=== PATIENT | female | born 1955 | race Caucasian/White ===

== ENCOUNTER → 2017-06-22 | Day surgery (SDC) | payer OTHER ==
[2017-06-12 09:52] VITALS: Ht 165.1 cm; Wt 86.4 kg
[~2017-06-22] VITALS: Ht 165.1 cm; Wt 86.4 kg
[~2017-06-22] MED LIST: LIDOCAINE HCL 2% 2 ML VIAL (20MG/ML) ONE; LISI-789 PO; LNX125 PO; METO1TAB69 PO; OXYB5TAB74 PO; PROPOFOL IV EMULSION 10 MG/ML 20 ML VIAL IV ONE; SIMV20TA2 PO; SPIR25TA PO; WARF5TAB90 PO
--- NOTE | 2017-06-22 11:10 | Endo History and Physical ---
History & Physical Date of Service: Jun 22, 2017. Chief Complaint: screening Referring Physician: Dr. Chan Asher Jr. History of Present Illness screening colonoscopy Past Surgical History Hx Cardiac Surgery: Yes (HEART CATH-NO STENTS) Hx Internal Defibrillator: No Hx Pacemaker: Yes (MEDTRONIC) Hx of Implantable Prosthesis: No Hx Post-Op Nausea and Vomiting: No Hx Cancer Surgery: No Hx Thoracic Surgery: No Hx Orthopedic: No Hx Urinary Tract Surgery: No Family History IBD Social History Smoking Status: Never Smoker Hx Substance Use: No Hx Alcohol Use: No Allergies Coded Allergies: No Known Allergies (Verified , 06/22/17) Current Medications Reported Home Medications Medications Dose Route/Sig Max Daily Dose Days Date Category Ditropan (Oxybutynin Chloride) 5 Mg Tab 5 Mg PO QPM 06/12/17 Reported Zocor (Simvastatin) 20 Mg Tab 20 Mg PO QPM 06/12/17 Reported Zestril (Lisinopril) 2.5 Mg Tab 1 Tab PO HS 06/12/17 Reported Coumadin (Warfarin Sodium) 5 Mg Tab 5 Mg PO 5XWK 06/12/17 Reported Coumadin (Warfarin Sodium) 5 Mg Tab 1.5 Tab PO 2XWK 90 06/12/17 Reported Digoxin 0.125 Mg Tab 1 Tab PO QAM 06/12/17 Reported Aldactone (Spironolactone) 25 Mg Tab 25 Mg PO QAM 06/12/17 Reported Toprol-Xl (Metoprolol Succinate) 100 Mg Tabcr 150 Mg PO QAM 06/12/17 Reported Vital Signs Weight (Kilograms): 86.36 Height (Feet): 5 Height (Inches): 5 Date Time Temp Pulse Resp B/P (MAP) Pulse Ox O2 Delivery O2 Flow Rate FiO2 06/22/17 09:35 36.6 74 20 149/98 (115) 97 Room Air Physical Exam General Appearance: no apparent distress Respiratory/Chest: Auscultation: breath sounds normal Cardiovascular: Heart Auscultation: RRR Abdomen: Inspection & Palpation: soft Liver: non-tender Assessment and Plan stable for colonoscopy
--- NOTE | 2017-06-22 11:46 | Discharge Instructions ---
Endoscopy Patient Instructions Date / Procedure(s) Performed Jun 22, 2017. Colonoscopy Allergy Information Coded Allergies: No Known Allergies (Verified , 06/22/17) Discharge Date / Findings Jun 22, 2017. colon polyp removed Medication Instructions Stopped Medication(s): last dose Warfarin 06/16 at 2359 Provider Instructions Activity Restrictions - No exercising or heavy lifting for 24 hours. - Do not drink alcohol the day of the procedure. - Do not drive a car or operate machinery until the day after the procedure. - Do not make any important decisions or sign important papers in 24 hours after the procedure. Following Day: - Return to full activity which may include returning to work/school. Diet Start your diet with liquids and light foods (jello, soup, juice, toast). Then eat your usual diet if not nauseated. Treatment For Common After Affects For mild abdominal pain, bloating, or excessive gas: - Rest - Eat lightly - Lie on right side Follow-Up Information Follow-up with Dr. Chan Asher Jr. as scheduled Anesthesia Information What You Should Know You have had a procedure that required some medicine to reduce anxiety and discomfort. This treatment is called moderate sedation. After receiving the treatment, you may be sleepy, but you will be able to breathe on your own. The effects of the treatment may last for several hours. Follow these instructions along with Activity/Diet recommendations noted above: * Do NOT do anything where dizziness or clumsiness would be dangerous. * Rest quietly at home today, then you can be up and about tomorrow. * Have a responsible person stay with you the rest of today. * You may have had an I.V. today. If so, you may take the dressing off later today. Recommendations Call your doctor if: * Trouble breathing * Continuous vomiting for more than 24 hours * Temperature above 101 degrees * Severe abdominal pain or bloating * Pain not relieved by pain medicine ordered * There is increased drainage or redness from any incision * A large amount of rectal bleeding greater than 2-3 tablespoons. (If you had a polyp/s removed or have hemorrhoids, a small amount of blood - from the rectum is to be expected.) * You have any unanswered questions or concerns. IN THE EVENT OF A SERIOUS EMERGENCY, GO TO THE NEAREST EMERGENCY ROOM Your discharge instructions were prepared by provider Tommy Sylvester. Patient Instructions Signature Page Brianne Childs Patient (or Guardian) Signature/Date: I have read and understand the instructions given to me by my caregivers. Caregiver/RN/Doctor Signature/Date: The above-named patient and/or guardian has received patient instructions on this date. + Original Patient Signature Page (only) stays with chart. Please make copy for patient.
--- NOTE | 2017-06-22 11:50 | GI REPORT ---
Procedure Date: 06/22/2017 11:11 AM Procedure: Colonoscopy Indications: Screening for colorectal malignant neoplasm Medicines: See the Anesthesia note for documentation of the administered medications Complications: No immediate complications. Estimated Blood Loss: Estimated blood loss was minimal. Procedure: Pre-Anesthesia Assessment: - Prior to the procedure, a History and Physical was performed, and patient medications, allergies and sensitivities were reviewed. The patient's tolerance of previous anesthesia was reviewed. - The risks and benefits of the procedure and the sedation options and risks were discussed with the patient. All questions were answered and informed consent was obtained. - Patient identification and proposed procedure were verified prior to the procedure by the physician and the nurse. The procedure was verified in the pre-procedure area. - Pre-procedure physical examination revealed no contraindications to sedation. - After reviewing the risks and benefits, the patient was deemed in satisfactory condition to undergo the procedure. After I obtained informed consent, the scope was passed under direct vision. Throughout the procedure, the patient's blood pressure, pulse, and oxygen saturations were monitored continuously. The scope was introduced through the anus and advanced to the terminal ileum, with identification of the appendiceal orifice and IC valve. The colonoscopy was performed without difficulty. The patient tolerated the procedure well. The quality of the bowel preparation was good. Findings: The perianal and digital rectal examinations were normal. The terminal ileum appeared normal. A 5 mm polyp was found in the cecum. The polyp was semi-sessile. The polyp was removed with a cold snare. Resection and retrieval were complete. Verification of patient identification for the specimen was done by the physician and nurse using the patient's name and medical record number. Estimated blood loss was minimal. The exam was otherwise without abnormality on direct and retroflexion views. Impression: - The examined portion of the ileum was normal. - One 5 mm polyp in the cecum, removed with a cold snare. Resected and retrieved. - The examination was otherwise normal on direct and retroflexion views. Recommendation: - Await pathology results. - Discharge patient to home. Tommy Sylvester M.D. Tommy Sylvester MD 06/22/2017 11:50:17 AM This report has been signed electronically. Note Initiated On: 06/22/2017 11:11 AM I attest to the content of the Intraoperative Record and orders documented therein, exceptions below
--- NOTE | 2017-06-22 12:03 | Anesthesiology Progress Note ---
Anesthesia Post Op Note Date & Time Jun 22, 2017 at 12:03 Vital Signs Pain Intensity: 0 Vital Signs Past 12 Hours Date Time Temp Pulse Resp B/P (MAP) Pulse Ox O2 Delivery O2 Flow Rate FiO2 06/22/17 11:48 75 16 111/71 (84) 98 Room Air 06/22/17 09:35 36.6 74 20 149/98 (115) 97 Room Air Notes Mental Status: alert / awake / arousable, participated in evaluation Pt Amnestic to Procedure: Yes Nausea / Vomiting: adequately controlled Pain: adequately controlled Airway Patency, RR, SpO2: stable & adequate BP & HR: stable & adequate Hydration State: stable & adequate Anesthetic Complications: no major complications apparent
[2017-06-22 12:18] VITALS: BP 127/78; PULSE 68; O2SAT 98
== END | disposition home or self-care (01) ==
LOC: C.GI 09:05
PROVIDERS: ATTEND Internal Medicine Gastroenterology
DX: Z12.11 Encounter for screening for malignant neoplasm of colon (principal); D12.0 Benign neoplasm of cecum; Z79.01 Long term (current) use of anticoagulants; I10 Essential (primary) hypertension; E78.5 Hyperlipidemia, unspecified; Z95.0 Presence of cardiac pacemaker; K21.9 Gastro-esophageal reflux disease without esophagitis; I25.10 Atherosclerotic heart disease of native coronary artery without angina pectoris

== ENCOUNTER 2021-05-11 01:58 | Inpatient (IN) ==
[2021-05-11] MEDS ORDERED: PANTOPRAZOLE BOLUS/DRIP 1 EA IV STA (02:28)
[2021-05-11] MEDS ORDERED: PANTOprazole 80 MG in DEXTROSE 5% 100 ML IV ONE (02:28)
[2021-05-11] MEDS ORDERED: SODIUM CHLORIDE 0.9% 1000ML 1,000 ML IV ONE ×2 (02:28→03:40)
[2021-05-11 02:38] LABS: Basophils # (auto) 0.03 K/uL (0-0.2); Basophils % (auto) 0.2 %; Eosinophils # (auto) 0.03 K/uL (0-0.5); Eosinophils % (auto) 0.2 %; Hematocrit (blood only) 29.9 % (37-47); Hemoglobin 9.8 g/dL (12.0-16.0); Immature Granulocytes % (auto) 0.7 %; Lymphocytes # (auto) 2.43 K/uL (1.2-3.4); Lymphocytes % (auto) 16.7 %; Mean Corpuscular Hemoglobin 26.3 pg (25-34); Mean Corpuscular Hgb Conc 32.8 g/dL (32-36); Mean Corpuscular Volume 80.4 fL (80-100); Mean Platelet Volume 10.2 fL (7.4-10.4); Monocytes # (auto) 0.58 K/uL (0.11-0.59); Neutrophils # (auto) 11.39 K/uL (1.4-6.5); Neutrophils % (auto) 78.2 %; Platelet Count 303 K/uL (130-400); RDW Coefficient of Variation 13.6 % (11.5-14.5); RDW Standard Deviation 39.5 fL (36.4-46.3); Red Blood Count 3.72 M/uL (4.2-5.4); White Blood Count 14.56 K/uL (4.8-10.8)
[2021-05-11] MEDS: PANTOprazole 40 MG in DEXTROSE 5% 100 ML IV SCH ×5 (02:47→23:39)
[2021-05-11 02:48] LABS: Alanine Aminotransferase 34 U/L (12-78); Albumin Level 3.2 gm/dl (3.4-5.0); Aspartate Aminotransferase 15 U/L (15-37); Blood Urea Nitrogen 53 mg/dl (7-18); Calcium 9.1 mg/dl (8.5-10.1); Carbon Dioxide 21 mmol/L (21-32); Chloride 109 mmol/L (98-107); Creatinine Clr Calc Pharmacy 73.9 ml/min; Est GFR (African American) 81.6 ml/min; Est GFR (Non-African American) 70.4 ml/min; Glucose 285 mg/dl (70-99); Lipase 86 U/L (73-393); Magnesium 1.8 mg/dl (1.8-2.4); Potassium 4.4 mmol/L (3.5-5.1); Sodium 137 mmol/L (136-145)
[2021-05-11 02:53] LABS: Albumin Globulin Ratio 0.9 (0.9-2); Alkaline Phosphatase 74 U/L (45-117); Bilirubin,Total 0.3 mg/dl (0.2-1); Globulin 3.4 gm/dl (2.5-4.0); NT Pro B Type Natriuretic Pept 59 pg/ml (0-900); Total Protein 6.6 gm/dl (6.4-8.2); Troponin I < 0.015 ng/ml (0-0.045)
--- NOTE | 2021-05-11 02:57 | Emergency Department Note ---
History of Present Illness General Chief complaint: GI Assessment Stated complaint: UPPER GI BLEED/DARK EMISIS Time Seen by Provider: 05/11/21 02:10 Source: patient Mode of arrival: EMS Limitations: no limitations History of Present Illness Provider complaint: vomiting Onset (ago): hour(s) Associated symptoms: + loss of appetite, + malaise and + nausea/vomiting; no chest pain, no shortness of breath or no syncope Treatments prior to arrival: none This is a 65-year-old who presents emergency department via EMS due to concern for vomiting. Patient states earlier today after lunch she began feeling unwell. She states this slowly progressed into worsening nausea and eventual dizziness this evening. She states tonight she began having vomiting and her called 911. at bedside states that the emesis looked grossly bloody with clots. Patient states it was dark. EMS reports patient had coffee- ground emesis with apparent clots in the toilet bowl. Patient states any attempt to stand up or walk made her feel significantly dizzy and weaker although she denies syncopal event or loss of consciousness. Patient denies any recent black or bloody stools, no recent diarrhea. Patient denies any company abdominal pain or cramping. No prior history of PUD or GERD. No prior history of GI bleed. No prior EGD. Patient denies any history of liver dysfunction or cirrhosis. Patient is anticoagulated due to history of cardiomyopathy. She states her last INR was 2.6. Pt seen during a time of high acuity and national emergency pandemic while wearing PPE. Home Medications Medication Instructions Recorded Confirmed Type furosemide 20 mg tablet 20 mg PO DAILY 07/30/19 05/11/21 History anastrozole 1 mg tablet 1 mg PO DAILY 05/11/21 05/11/21 History digoxin 125 mcg (0.125 mg) tablet 0.125 mcg PO DAILY 05/11/21 05/11/21 History lisinopril 2.5 mg tablet 2.5 mg PO DAILY 05/11/21 05/11/21 History metoprolol succinate 100 mg 100 mg PO DAILY 05/11/21 05/11/21 History tablet,extended release 24 hr metoprolol succinate 25 mg 25 mg PO DAILY 05/11/21 05/11/21 History tablet,extended release 24 hr simvastatin 20 mg tablet 20 mg PO HS 05/11/21 05/11/21 History solifenacin 5 mg tablet 5 mg PO DAILY 05/11/21 05/11/21 History spironolactone 25 mg tablet 25 mg PO DAILY 05/11/21 05/11/21 History warfarin 5 mg tablet See Rx Instructions .ROUTE .COMPLEX 05/11/21 05/11/21 History Allergies Allergy/AdvReac Type Severity Reaction Status Date / Time No Known Allergies Allergy Verified 05/11/21 02:27 Past Med/Surg History Social History Smoking Status: Never smoker Hx Alcohol Use: No Hx Substance Use: No Preferred Language: Occitan Communication Ability: Effective [employer]ver [employer]ware Required: No Beliefs That Will Affect Care: None Current Living Situation: Spouse Feels Safe at Home: Yes Safety Concerns: Feels Safe At This Time Review of Systems A total of 10 systems reviewed and were otherwise negative All systems reviewed & are unremarkable except as noted in HPI & below Physical Exam Vital Signs Vital Signs - 24 hr 05/11/21 02:00 05/11/21 02:04 05/11/21 02:12 Temperature 37.5 C Temperature Source Oral Pulse Rate 122 H 114 H Pulse Rate [Radial] 122 H Pulse Rate from SpO2 Sensor 113 H Respiratory Rate 16 24 20 Respiratory Depth Normal Blood Pressure 124/70 124/70 Blood Pressure [Left Arm] 124/70 Blood Pressure Mean 88 88 Blood Pressure Mean [Left Arm] 88 Pulse Oximetry 99 97 97 Oxygen Delivery Method Room Air Room Air Sepsis Recent Fever Within 48 Hours No Sepsis New/Unexplained Change in Mental Status N/A Sepsis Action Taken by Nursing No Action Required 05/11/21 03:02 Temperature Temperature Source Pulse Rate 100 H Pulse Rate [Radial] Pulse Rate from SpO2 Sensor Respiratory Rate 18 Respiratory Depth Blood Pressure 124/70 Blood Pressure [Left Arm] Blood Pressure Mean 88 Blood Pressure Mean [Left Arm] Pulse Oximetry 99 Oxygen Delivery Method Room Air Sepsis Recent Fever Within 48 Hours Sepsis New/Unexplained Change in Mental Status Sepsis Action Taken by Nursing GENERAL: alert, ill appearing, well nourished, no distress, non-toxic EYE EXAM: normal conjunctiva, PERRL and EOM's grossly intact OROPHARYNX: no exudate, no erythema, lips, buccal mucosa, and tongue normal and mucous membranes are moist, dried black residue to lips NECK: supple, no nuchal rigidity, no adenopathy, non-tender LUNGS: Clear to auscultation. Normal chest wall mechanics, no w/r/r HEART: no murmurs, S1 normal and S2 normal ABDOMEN: abdomen soft, non-tender, normo-active bowel sounds, no masses, no rebound or guarding. BACK: Back is symmetrical on inspection and there is no deformity, no midline tenderness, no CVA tenderness. SKIN: no rashes and no bruising, petechaie, pallor UPPER EXTREMITIES: upper extremities are grossly normal. FROM, nml pulses b/l. LOWER EXTREMITIES: No pitting edema. FROM, nml pulses b/l. NEURO EXAM: Normal sensorium, cranial nerves II-XII grossly intact, normal speech, no gross weakness of arms, no gross weakness of legs. Gross sensation intact. Course Course 0335: Patient had requested to go to the restroom. She said at bedside for time and had no orthostatic symptoms. Upon standing to walk to bathroom, pt felt lightheaded. She sat down before passing out but then began to vomit blood again. 0345: Discussed with Dr. Hernandez. 0352: Discussed with Dr. Sylvester. Administered Medications Anastrozole (Anastrozole 1 Mg Tab) 1 mg PO DAILY [facility] Stop: 06/10/21 08:59 Last Admin: 05/11/21 10:02 Dose: 1 mg Documented by: [id number] Cosigned by: [id number] Digoxin (Digoxin 0.125 Mg Tab) 0.125 mg PO DAILY@1600 [facility] Stop: 06/10/21 15:59 Last Admin: 05/11/21 16:49 Dose: 0.125 mg Documented by: [id number] Pantoprazole Sodium 40 mg/ (Dextrose) 100 mls @ 20 mls/hr IV Q5H [facility] Stop: 06/10/21 02:44 Last Admin: 05/12/21 04:52 Dose: 8 mg/hr, 20 mls/hr Documented by: [id number] Infusion: 05/12/21 04:39 Dose: 8 mg/hr, 20 mls/hr Documented by: [id number] Admin: 05/11/21 23:39 Dose: 8 mg/hr, 20 mls/hr Documented by: [id number] Infusion: 05/11/21 23:39 Dose: 8 mg/hr, 20 mls/hr Documented by: [id number] Admin: 05/11/21 18:48 Dose: 8 mg/hr, 20 mls/hr Documented by: [id number] Infusion: 05/11/21 18:48 Dose: 8 mg/hr, 20 mls/hr Documented by: [id number] Admin: 05/11/21 14:12 Dose: 8 mg/hr, 20 mls/hr Documented by: [id number] Infusion: 05/11/21 14:12 Dose: 8 mg/hr, 20 mls/hr Documented by: [id number] Admin: 05/11/21 10:04 Dose: 8 mg/hr, 20 mls/hr Documented by: [id number] Infusion: 05/11/21 07:44 Dose: 0 mg/hr, 0 mls/hr Documented by: [id number] Admin: 05/11/21 02:47 Dose: 8 mg/hr, 20 mls/hr Documented by: [id number] Lactated Ringer's (Lr) 1,000 mls @ 100 mls/hr IV .Q10H [facility] Stop: 06/10/21 10:29 Last Admin: 05/12/21 06:00 Dose: 100 mls/hr Documented by: [id number] Infusion: 05/12/21 06:00 Dose: 100 mls/hr Documented by: [id number] Admin: 05/12/21 00:27 Dose: 100 mls/hr Documented by: [id number] Infusion: 05/12/21 00:07 Dose: 0 mls/hr Documented by: [id number] Infusion: 05/11/21 18:42 Dose: 0 mls/hr Documented by: [id number] Admin: 05/11/21 11:21 Dose: 100 mls/hr Documented by: [id number] Insulin Aspart (Insulin Aspart 100 Units/Ml 3 Ml Pen) 0 units SC ACHS [facility] Stop: 06/10/21 08:17 Last Admin: 05/11/21 20:26 Dose: Not Given Documented by: [id number] Cosigned by: [id number] Admin: 05/11/21 17:19 Dose: Not Given Documented by: [id number] Admin: 05/11/21 12:16 Dose: 2 units Documented by: [id number] Cosigned by: [id number] Admin: 05/11/21 09:47 Dose: 2 units Documented by: [id number] Cosigned by: [id number] Miscellaneous (Solifenacin - Order Awaiting Action) 1 ea N/A QS [facility] Stop: 06/10/21 15:59 Last Admin: 05/12/21 00:07 Dose: Not Given Documented by: [id number] Admin: 05/11/21 16:49 Dose: Not Given Documented by: [id number] Simvastatin (Simvastatin 20 Mg Tab) 20 mg PO [facility] Stop: 06/10/21 20:59 Last Admin: 05/11/21 20:31 Dose: 20 mg Documented by: [id number] Discontinued Medications Digoxin (Digoxin 0.125 Mg Tab) 0.125 mg PO NOW STA Stop: 05/11/21 06:08 Last Admin: 05/11/21 06:32 Dose: 0.125 mg Documented by: [id number] Sodium Chloride (Nss 1000ml) 1,000 mls @ 999 mls/hr IV .Q1H1M ONE Stop: 05/11/21 03:28 Last Infusion: 05/11/21 03:37 Dose: 0 mls/hr Documented by: [id number] Admin: 05/11/21 02:36 Dose: 999 mls/hr Documented by: [id number] Pantoprazole Sodium (Protonix Bolus/Drip) 0 mls @ 1 mls/hr IV ONE STA Stop: 05/11/21 02:29 Last Admin: 05/11/21 03:14 Dose: Not Given Documented by: [id number] Pantoprazole Sodium 80 mg/ (Dextrose) 120 mls @ 400 mls/hr IV NOW ONE Stop: 05/11/21 02:45 Last Infusion: 05/11/21 03:07 Dose: 0 mls/hr Documented by: [id number] Admin: 05/11/21 02:46 Dose: 400 mls/hr Documented by: [id number] Phytonadione 2.5 mg/ Sodium (Chloride) 50.25 mls @ 100.5 mls/hr IV ONE ONE Stop: 05/11/21 04:09 Last Infusion: 05/11/21 04:21 Dose: 0 mls/hr Documented by: [id number] Admin: 05/11/21 03:51 Dose: 100.5 mls/hr Documented by: [id number] Sodium Chloride (Nss 1000ml) 1,000 mls @ 999 mls/hr IV .Q1H1M ONE Stop: 05/11/21 04:40 Last Infusion: 05/11/21 05:03 Dose: 0 mls/hr Documented by: [id number] Admin: 05/11/21 03:52 Dose: 999 mls/hr Documented by: [id number] Phytonadione 10 mg/ Sodium (Chloride) 51 mls @ 102 mls/hr IV ONE ONE Stop: 05/11/21 04:24 Last Admin: 05/11/21 04:33 Dose: Not Given Documented by: [id number] Phytonadione 7.5 mg/ Sodium (Chloride) 50.75 mls @ 102 mls/hr IV ONE ONE Stop: 05/11/21 04:59 Last Infusion: 05/11/21 05:05 Dose: 0 mls/hr Documented by: [id number] Admin: 05/11/21 04:34 Dose: 102 mls/hr Documented by: [id number] Lactated Ringer's (Lr) 1,000 mls @ 200 mls/hr IV .Q5H ONE Stop: 05/11/21 10:03 Last Infusion: 05/11/21 11:32 Dose: 0 mls/hr Documented by: [id number] Admin: 05/11/21 05:16 Dose: 200 mls/hr Documented by: [id number] Magnesium Sulfate/Dextrose (Magnesium Sulfate / D5w) 1 gm in 100 mls @ 50 mls/hr IV ONE ONE Stop: 05/11/21 09:34 Last Infusion: 05/11/21 15:04 Dose: 0 mls/hr Documented by: [id number] Admin: 05/11/21 12:10 Dose: 50 mls/hr Documented by: [id number] Sodium Phosphate 9 mmol/ (Sodium Chloride) 253 mls @ 88 mls/hr IV ONE ONE Stop: 05/11/21 20:52 Last Infusion: 05/12/21 00:08 Dose: 0 mls/hr Documented by: [id number] Admin: 05/11/21 18:48 Dose: 88 mls/hr Documented by: [id number] Insulin Glargine (Insulin Glargine Solostar 100 Units/Ml 3 Ml Pen) 5 units SC NOW STA Stop: 05/11/21 05:10 Last Admin: 05/11/21 06:32 Dose: 5 units Documented by: [id number] Cosigned by: [id number] Critical Care Time Critical Care Time: Yes Total Critical Care Time: 47 Critical care of 47 min performed to assess and manage high likelihood of life- threatening GI bleed, involving labs and imaging performed with assessment to evaluate Gi bleed diagnosis with frequent reassessment. This time includes bedside time, treatment discussions with patient/family/consultants, documentation time and excludes procedure time. Medical Decision Making Differential Diagnosis Differential diagnosis includes etiologies such as diverticulosis, AVM, coagulopathy, colitis, inflammatory bowel disease, malignancy, Meghna-Sharp tear, esophagitis, peptic ulcer disease, variceal bleed, gastritis, epistaxis, fissure, hemorrhoids, as well as others were entertained. Medical Records Attestation: I reviewed the patient's medical records. Home Medications Current Medication List: was personally reviewed by me Laboratory Data Attestation: I reviewed the patient's lab results. Result diagrams: 05/12/21 06:01 05/11/21 14:46 Lab Results 05/11/21 05/11/21 05/11/21 Range/Units 02:15 02:15 02:15 WBC 14.56 H (4.8-10.8) K/uL RBC 3.72 L (4.2-5.4) M/uL Hgb 9.8 L (12.0-16.0) g/dL Hct 29.9 L (37-47) % MCV 80.4 (80-100) fL MCH 26.3 (25-34) pg MCHC 32.8 (32-36) g/dL RDW Std Deviation 39.5 (36.4-46.3) fL RDW Coeff of Malka 13.6 (11.5-14.5) % Plt Count 303 (130-400) K/uL MPV 10.2 (7.4-10.4) fL Immature Gran % (Auto) 0.7 % Neut % (Auto) 78.2 % Lymph % (Auto) 16.7 % Hamlin % (Auto) 4.0 % Eos % (Auto) 0.2 % Baso % (Auto) 0.2 % Neut # (Auto) 11.39 H (1.4-6.5) K/uL Lymph # (Auto) 2.43 (1.2-3.4) K/uL [place]lin # (Auto) 0.58 (0.11-0.59) K/uL Eos # (Auto) 0.03 (0-0.5) K/uL Baso # (Auto) 0.03 (0-0.2) K/uL Immature Gran # (Auto) 0.10 H (0.00-0.02) K/uL PT 43.5 H (9.0-12.0) Seconds INR 4.9 H (0.9-1.1) Sodium 137 (136-145) mmol/L Potassium 4.4 (3.5-5.1) mmol/L Chloride 109 H (98-107) mmol/L Carbon Dioxide 21 (21-32) mmol/L Anion Gap 7.0 (3-11) BUN 53 H (7-18) mg/dl Creatinine 0.87 (0.6-1.2) mg/dl Est Cr Clr Drug Dosing 73.9 ml/min Est GFR ( Amer) 81.6 ml/min Est GFR (Non-Af Amer) 70.4 ml/min BUN/Creatinine Ratio 61.0 H (10-20) Glucose 285 H (70-99) mg/dl Estimat Average Glucose mg/dl Hemoglobin A1c (4.5-5.6) % Lactate (0.4-2.0) mmol/L Calcium 9.1 (8.5-10.1) mg/dl Magnesium 1.8 (1.8-2.4) mg/dl Total Bilirubin 0.3 (0.2-1) mg/dl AST 15 (15-37) U/L ALT 34 (12-78) U/L Alkaline Phosphatase 74 (45-117) U/L Troponin I < 0.015 (0-0.045) ng/ml NT-Pro-B Natriuret Pep 59 (0-900) pg/ml Total Protein 6.6 (6.4-8.2) gm/dl Albumin 3.2 L (3.4-5.0) gm/dl Globulin 3.4 (2.5-4.0) gm/dl Albumin/Globulin Ratio 0.9 (0.9-2) Lipase 86 (73-393) U/L Procalcitonin (0-0.5) ng/ml TSH 0.895 (0.300-4.500) uIu/ml Digoxin (0.8-2.0) ng/ml COVID-19 Eval Order SARS-CoV-2 (PCR) (Negative) Blood Type Antibody Screen Crossmatch 05/11/21 05/11/21 05/11/21 Range/Units 02:15 02:15 02:15 WBC (4.8-10.8) K/uL RBC (4.2-5.4) M/uL Hgb (12.0-16.0) g/dL Hct (37-47) % MCV (80-100) fL MCH (25-34) pg MCHC (32-36) g/dL RDW Std Deviation (36.4-46.3) fL RDW Coeff of Malka (11.5-14.5) % Plt Count (130-400) K/uL MPV (7.4-10.4) fL Immature Gran % (Auto) % Neut % (Auto) % Lymph % (Auto) % Hamlin % (Auto) % Eos % (Auto) % Baso % (Auto) % Neut # (Auto) (1.4-6.5) K/uL Lymph # (Auto) (1.2-3.4) K/uL [place]lin # (Auto) (0.11-0.59) K/uL Eos # (Auto) (0-0.5) K/uL Baso # (Auto) (0-0.2) K/uL Immature Gran # (Auto) (0.00-0.02) K/uL PT (9.0-12.0) Seconds INR (0.9-1.1) Sodium (136-145) mmol/L Potassium (3.5-5.1) mmol/L Chloride (98-107) mmol/L Carbon Dioxide (21-32) mmol/L Anion Gap (3-11) BUN (7-18) mg/dl Creatinine (0.6-1.2) mg/dl Est Cr Clr Drug Dosing ml/min Est GFR ( Amer) ml/min Est GFR (Non-Af Amer) ml/min BUN/Creatinine Ratio (10-20) Glucose (70-99) mg/dl Estimat Average Glucose 157 mg/dl Hemoglobin A1c 7.1 H (4.5-5.6) % Lactate (0.4-2.0) mmol/L Calcium (8.5-10.1) mg/dl Magnesium (1.8-2.4) mg/dl Total Bilirubin (0.2-1) mg/dl AST (15-37) U/L ALT (12-78) U/L Alkaline Phosphatase (45-117) U/L Troponin I (0-0.045) ng/ml NT-Pro-B Natriuret Pep (0-900) pg/ml Total Protein (6.4-8.2) gm/dl Albumin (3.4-5.0) gm/dl Globulin (2.5-4.0) gm/dl Albumin/Globulin Ratio (0.9-2) Lipase (73-393) U/L Procalcitonin 0.07 (0-0.5) ng/ml TSH (0.300-4.500) uIu/ml Digoxin 0.4 L (0.8-2.0) ng/ml COVID-19 Eval Order SARS-CoV-2 (PCR) (Negative) Blood Type Antibody Screen Crossmatch 05/11/21 05/11/21 05/11/21 Range/Units 02:24 03:54 03:54 WBC (4.8-10.8) K/uL RBC (4.2-5.4) M/uL Hgb 7.8 L (12.0-16.0) g/dL Hct 23.7 L (37-47) % MCV (80-100) fL MCH (25-34) pg MCHC (32-36) g/dL RDW Std Deviation (36.4-46.3) fL RDW Coeff of Malka (11.5-14.5) % Plt Count (130-400) K/uL MPV (7.4-10.4) fL Immature Gran % (Auto) % Neut % (Auto) % Lymph % (Auto) % Hamlin % (Auto) % Eos % (Auto) % Baso % (Auto) % Neut # (Auto) (1.4-6.5) K/uL Lymph # (Auto) (1.2-3.4) K/uL Hamlin # (Auto) (0.11-0.59) K/uL Eos # (Auto) (0-0.5) K/uL Baso # (Auto) (0-0.2) K/uL Immature Gran # (Auto) (0.00-0.02) K/uL PT (9.0-12.0) Seconds INR (0.9-1.1) Sodium (136-145) mmol/L Potassium (3.5-5.1) mmol/L Chloride (98-107) mmol/L Carbon Dioxide (21-32) mmol/L Anion Gap (3-11) BUN (7-18) mg/dl Creatinine (0.6-1.2) mg/dl Est Cr Clr Drug Dosing ml/min Est GFR ( Amer) ml/min Est GFR (Non-Af Amer) ml/min BUN/Creatinine Ratio (10-20) Glucose (70-99) mg/dl Estimat Average Glucose mg/dl Hemoglobin A1c (4.5-5.6) % Lactate 4.2 H* (0.4-2.0) mmol/L Calcium (8.5-10.1) mg/dl Magnesium (1.8-2.4) mg/dl Total Bilirubin (0.2-1) mg/dl AST (15-37) U/L ALT (12-78) U/L Alkaline Phosphatase (45-117) U/L Troponin I (0-0.045) ng/ml NT-Pro-B Natriuret Pep (0-900) pg/ml Total Protein (6.4-8.2) gm/dl Albumin (3.4-5.0) gm/dl Globulin (2.5-4.0) gm/dl Albumin/Globulin Ratio (0.9-2) Lipase (73-393) U/L Procalcitonin (0-0.5) ng/ml TSH (0.300-4.500) uIu/ml Digoxin (0.8-2.0) ng/ml COVID-19 Eval Order SARS-CoV-2 (PCR) (Negative) Blood Type B Positive Antibody Screen NEGATIVE Crossmatch See Detail 05/11/21 05/11/21 Range/Units 03:54 03:54 WBC (4.8-10.8) K/uL RBC (4.2-5.4) M/uL Hgb (12.0-16.0) g/dL Hct (37-47) % MCV (80-100) fL MCH (25-34) pg MCHC (32-36) g/dL RDW Std Deviation (36.4-46.3) fL RDW Coeff of Malka (11.5-14.5) % Plt Count (130-400) K/uL MPV (7.4-10.4) fL Immature Gran % (Auto) % Neut % (Auto) % Lymph % (Auto) % Hamlin % (Auto) % Eos % (Auto) % Baso % (Auto) % Neut # (Auto) (1.4-6.5) K/uL Lymph # (Auto) (1.2-3.4) K/uL Hamlin # (Auto) (0.11-0.59) K/uL Eos # (Auto) (0-0.5) K/uL Baso # (Auto) (0-0.2) K/uL Immature Gran # (Auto) (0.00-0.02) K/uL PT (9.0-12.0) Seconds INR (0.9-1.1) Sodium (136-145) mmol/L Potassium (3.5-5.1) mmol/L Chloride (98-107) mmol/L Carbon Dioxide (21-32) mmol/L Anion Gap (3-11) BUN (7-18) mg/dl Creatinine (0.6-1.2) mg/dl Est Cr Clr Drug Dosing ml/min Est GFR ( Amer) ml/min Est GFR (Non-Af Amer) ml/min BUN/Creatinine Ratio (10-20) Glucose (70-99) mg/dl Estimat Average Glucose mg/dl Hemoglobin A1c (4.5-5.6) % Lactate (0.4-2.0) mmol/L Calcium (8.5-10.1) mg/dl Magnesium (1.8-2.4) mg/dl Total Bilirubin (0.2-1) mg/dl AST (15-37) U/L ALT (12-78) U/L Alkaline Phosphatase (45-117) U/L Troponin I (0-0.045) ng/ml NT-Pro-B Natriuret Pep (0-900) pg/ml Total Protein (6.4-8.2) gm/dl Albumin (3.4-5.0) gm/dl Globulin (2.5-4.0) gm/dl Albumin/Globulin Ratio (0.9-2) Lipase (73-393) U/L Procalcitonin (0-0.5) ng/ml TSH (0.300-4.500) uIu/ml Digoxin (0.8-2.0) ng/ml COVID-19 Eval Order Covid19 at [facility] SARS-CoV-2 (PCR) NEGATIVE (Negative) Blood Type Antibody Screen Crossmatch ECG Data Attestation: I personally reviewed and interpreted this ECG as follows: Indication: + vomiting Rate (beats per minute): 102 Rhythm: + other ECG Intervals/blocks: + IVCD and + Prolonged QT ECG [place]: + Left axis deviation ECG ST segments: + Nonspecific ST abnormalities Additional Comments: paced MDM Narrative This is a 65-year-old female who presents due to concern for hematemesis noted at home following prolonged nausea, with orthostatic symptoms. EMS reported coffee-ground emesis in the toilet bowl. Patient was tachycardic but otherwise hemodynamically stable. Patient's first H&H were lower compared to prior, although not emergently concerning. Patient not had recurrent episode here of hematemesis and a near syncopal event after IV fluids and a Protonix bolus and drip had already been started. Patient had additional IV fluids ordered, repeat H&H which were lower, however did remain hemodynamically stable. Case discussed with on-call GI and with the hospitalist. Vitamin K was ordered lowing her repeat event due to concern for worsening bleeding due to patient's use of Coumadin despite not yet knowing INR. Following INR result in system in conversation with hospitalist, they added additional vitamin K. Blood consent was signed at bedside. All results discussed with patient and family, they verbalized understanding and were in agreement. No prior history of cirrhosis, esophageal varices, PUD. I suspect patient's syncopal event related to orthostatic symptoms and blood loss, I do not suspect other acute dysrhythmia or cardiac etiology. I do not suspect occult infectious etiology despite mild leukocytosis, I suspect this is likely reactive from events this evening. An order was placed for continuous cardiac monitoring. The monitor shows a rate of _111_ with _sinus tachycardia__ rhythm. Impression & Plan UGIB (upper gastrointestinal bleed), Dizziness, Nausea & vomiting, Syncope Discharge Plan Visit Data Chief Complaint: GI Assessment Stated Complaint: UPPER GI BLEED/DARK EMISIS ED Provider: Pheasant,Brandee S. Discharge Problem: UGIB (upper gastrointestinal bleed), Dizziness, Nausea & vomiting, Syncope Patient Disposition: Admitted As Inpatient Discharge Instructions Interventions: ED Discharge Assessment Last Done: 05/11/21 07:33 Discharge Problem: Nausea & vomiting Qualifiers: Vomiting type: unspecified Vomiting Intractability: non-intractable Qualified Code(s): R11.2 - Nausea with vomiting, unspecified Syncope Qualifiers: Syncope type: unspecified Qualified Code(s): R55 - Syncope and collapse
[2021-05-11 03:02] LABS: INR 4.9 (0.9-1.1); Prothrombin Time 43.5 Seconds (9.0-12.0)
[2021-05-11] MEDS ORDERED: PHYTONADIONE 2.5 MG in SODIUM CHLORIDE 0.9% 50 ML IV ONE (03:40)
[2021-05-11] MEDS ORDERED: PHYTONADIONE 10 MG in SODIUM CHLORIDE 0.9% 50 ML IV ONE (03:55)
[2021-05-11 04:15] LABS: Hematocrit (blood only) 23.7 % (37-47); Hemoglobin 7.8 g/dL (12.0-16.0)
[2021-05-11 04:18] LABS: Thyroid Stimulating Hormone 0.895 uIu/ml (0.300-4.500)
[2021-05-11] MEDS ORDERED: PHYTONADIONE IV ONE (04:30)
[2021-05-11] MEDS ORDERED: SODIUM CHLORIDE 0.9% IV ONE (04:30)
--- NOTE | 2021-05-11 04:38 | History & Physical Report ---
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 chronic diastolic heart failure (EF 55%, TTE 2019), patient on the dry side chronic left bundle branch block hypertension, BP stable although on the lower side hyperlipidemia on statin Rx right breast cancer status post surgery/radiation on anastrozole, in remission Hyperglycemia, likely DM2 given outpatient hemoglobin A1c of 6.18 August 2020 (patient unaware) Medical telemetry Vitamin K Hold Coumadin IV PPI Serial H&H, transfuse PRBC to obtain hemoglobin greater than 8 GI consult Re: GI bleed (ER provider already in touch with Dr. Sylvester who agrees with full reversal of coagulopathy in preparation for possible endoscopy) IVF Appropriate to hold antihypertensives for now until hemodynamics stable. Basal insulin adjusted for n.p.o. status, ISS BG goal 1 10-1 40, update hemoglobin A1c, DM education DVT prophylaxis. SCDs if INR less than 2 while Coumadin on hold Full code Patient's requesting updates for providers. Bel Joshua Childs, contact #[phone]. Text document was generated using [employer] voice recognition software. It may contain grammatical or spelling errors. Kindly contact undersigned for clarification of any documentation item in question. History of Present Illness Chief Complaint: Coffee-ground emesis Primary Care Provider: Tarik Church MD History obtained from patient, family, and records. 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 Patient felt ill after having a taco lunch yesterday. Nausea, bilious emesis later noted to be coffee-ground. No BM yet. No chest pain, no shortness of breath. No actual abdominal pain. No headache symptoms. Patient felt unwell and dizzy. [place] like she was going to pass out. Compliant with home medications. Denies OTC NSAID intake. No prior episodes. No unusual weight loss the last few weeks. At the ER, IV PPI started for GI bleed. Medical History as above No prior EGDs. Colonoscopy from 2016 showed polyp. 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 Allergies Allergy/AdvReac Type Severity Reaction Status Date / Time No Known Allergies Allergy Verified 05/11/21 02:27 Home Medications Medication Instructions Recorded Confirmed Type furosemide 20 mg tablet 20 mg PO DAILY 07/30/19 05/11/21 History anastrozole 1 mg tablet 1 mg PO DAILY 05/11/21 05/11/21 History digoxin 125 mcg (0.125 mg) tablet 0.125 mcg PO DAILY 05/11/21 05/11/21 History lisinopril 2.5 mg tablet 2.5 mg PO DAILY 05/11/21 05/11/21 History metoprolol succinate 100 mg 100 mg PO DAILY 05/11/21 05/11/21 History tablet,extended release 24 hr metoprolol succinate 25 mg 25 mg PO DAILY 05/11/21 05/11/21 History tablet,extended release 24 hr simvastatin 20 mg tablet 20 mg PO HS 05/11/21 05/11/21 History solifenacin 5 mg tablet 5 mg PO DAILY 05/11/21 05/11/21 History spironolactone 25 mg tablet 25 mg PO DAILY 05/11/21 05/11/21 History warfarin 5 mg tablet See Rx Instructions .ROUTE .COMPLEX 05/11/21 05/11/21 History Past Med/Surg History Social History Smoking Status: Never smoker Hx Alcohol Use: No Hx Substance Use: No Preferred Language: Ecuadorean Communication Ability: Effective Personnel Specialist Required: No Beliefs That Will Affect Care: None Current Living Situation: Spouse Feels Safe at Home: Yes Safety Concerns: Feels Safe At This Time Review of Systems Review of Systems: As per HPI, all 10 systems reviewed, all other ROS negative Physical Exam Physical Exam: GENERAL: Comfortable, pleasant, obese, no respiratory distress SKIN: Pallor, warm HEENT: Pale palpebral conjunctivae, no ptosis, dry buccal mucosa, dried dark liquid per orem NECK : Supple, short neck, no tenderness CHEST : CTA, no tenderness HEART : RRR, no obvious murmurs ABDOMEN: Some distention, nontender EXTREMITIES : Minimal LE swelling, no LE tenderness, no other conspicuous deformities noted NEUROLOGIC : Coherent, no facial asymmetry, no other gross focality Results & Data Results & Data ([facility]) Vital Signs (Past 12 Hours) Vital Signs Temp Pulse Pulse Resp BP BP Pulse Ox 05/11/21 03:02 100 H 18 124/70 99 05/11/21 02:12 122 H 20 124/70 97 05/11/21 02:04 114 H 24 124/70 97 05/11/21 02:00 37.5 C 122 H 16 124/70 99 Laboratory Results Laboratory Results WBC 14.56 K/uL (4.8-10.8) H 05/11/21 02:15 RBC 3.72 M/uL (4.2-5.4) L 05/11/21 02:15 Hgb 7.8 g/dL (12.0-16.0) L 05/11/21 03:54 Hct 23.7 % (37-47) L 05/11/21 03:54 MCV 80.4 fL (80-100) 05/11/21 02:15 MCH 26.3 pg (25-34) 05/11/21 02:15 MCHC 32.8 g/dL (32-36) 05/11/21 02:15 RDW Std Deviation 39.5 fL (36.4-46.3) 05/11/21 02:15 RDW Coeff of [place]alk[place] 13.6 % (11.5-14.5) 05/11/21 02:15 Plt Count 303 K/uL (130-400) 05/11/21 02:15 MPV 10.2 fL (7.4-10.4) 05/11/21 02:15 Immature Gran % (Auto) 0.7 % 05/11/21 02:15 Neut % (Auto) 78.2 % 05/11/21 02:15 Lymph % (Auto) 16.7 % 05/11/21 02:15 [place] % (Auto) 4.0 % 05/11/21 02:15 Eos % (Auto) 0.2 % 05/11/21 02:15 Baso % (Auto) 0.2 % 05/11/21 02:15 Neut # (Auto) 11.39 K/uL (1.4-6.5) H 05/11/21 02:15 Lymph # (Auto) 2.43 K/uL (1.2-3.4) 05/11/21 02:15 [place] # (Auto) 0.58 K/uL (0.11-0.59) 05/11/21 02:15 Eos # (Auto) 0.03 K/uL (0-0.5) 05/11/21 02:15 Baso # (Auto) 0.03 K/uL (0-0.2) 05/11/21 02:15 Immature Gran # (Auto) 0.10 K/uL (0.00-0.02) H 05/11/21 02:15 PT 43.5 Seconds (9.0-12.0) H 05/11/21 02:15 INR 4.9 (0.9-1.1) H 05/11/21 02:15 Sodium 137 mmol/L (136-145) 05/11/21 02:15 Potassium 4.4 mmol/L (3.5-5.1) 05/11/21 02:15 Chloride 109 mmol/L (98-107) H 05/11/21 02:15 Carbon Dioxide 21 mmol/L (21-32) 05/11/21 02:15 Anion Gap 7.0 (3-11) 05/11/21 02:15 BUN 53 mg/dl (7-18) H 05/11/21 02:15 Creatinine 0.87 mg/dl (0.6-1.2) 05/11/21 02:15 Est Cr Clr Drug Dosing 73.9 ml/min 05/11/21 02:15 Est GFR ( Amer) 81.6 ml/min 05/11/21 02:15 Est GFR (Non-Af Amer) 70.4 ml/min 05/11/21 02:15 BUN/Creatinine Ratio 61.0 (10-20) H 05/11/21 02:15 Glucose 285 mg/dl (70-99) H 05/11/21 02:15 Calcium 9.1 mg/dl (8.5-10.1) 05/11/21 02:15 Magnesium 1.8 mg/dl (1.8-2.4) 05/11/21 02:15 Total Bilirubin 0.3 mg/dl (0.2-1) 05/11/21 02:15 AST 15 U/L (15-37) 05/11/21 02:15 ALT 34 U/L (12-78) 05/11/21 02:15 Alkaline Phosphatase 74 U/L (45-117) 05/11/21 02:15 Troponin I < 0.015 ng/ml (0-0.045) 05/11/21 02:15 NT-Pro-B Natriuret Pep 59 pg/ml (0-900) 05/11/21 02:15 Total Protein 6.6 gm/dl (6.4-8.2) 05/11/21 02:15 Albumin 3.2 gm/dl (3.4-5.0) L 05/11/21 02:15 Globulin 3.4 gm/dl (2.5-4.0) 05/11/21 02:15 Albumin/Globulin Ratio 0.9 (0.9-2) 05/11/21 02:15 Lipase 86 U/L (73-393) 05/11/21 02:15 Procalcitonin 0.07 ng/ml (0-0.5) 05/11/21 02:15 TSH 0.895 uIu/ml (0.300-4.500) 05/11/21 02:15 Digoxin 0.4 ng/ml (0.8-2.0) L 05/11/21 02:15 COVID-19 Eval Order Covid19 at [facility] 05/11/21 03:54 Blood Type B Positive 05/11/21 02:24 Antibody Screen NEGATIVE 05/11/21 02:24 Diagnostic Findings Chest x-ray as per my interpretation ICD, no congestion EKG as per my interpretation : Rate 100, paced rhythm
[2021-05-11] MEDS ORDERED: SODIUM CHLORIDE 0.9% 250 ML IV PRN ×2 (04:49→20:52)
[2021-05-11] MEDS ORDERED: LACTATED RINGER'S 1,000 ML IV ONE (05:04)
[2021-05-11] MEDS ORDERED: INSULIN GLARGINE SOLOSTAR 100 UNITS/ML 3 ML PEN SC STA (05:09)
[2021-05-11] MEDS ORDERED: DIGOXIN 0.125 MG TAB PO STA (06:07)
[2021-05-11 07:26] LABS: Estimated Average Glucose 157 mg/dl; Hemoglobin A1C 7.1 % (4.5-5.6)
[2021-05-11] MEDS ORDERED: MAGNESIUM SULFATE / D5W 1 GM/100 ML BAG IV ONE (07:35)
[2021-05-11] MEDS ORDERED: GLUCOSE 10 TABS/TUBE PO PRN (08:18)
[2021-05-11] MEDS ORDERED: PROMETHAZINE HCL 12.5 MG in SODIUM CHLORIDE 0.9% 50 ML IV PRN (08:18)
[2021-05-11] MEDS ORDERED: MoRPHine SULFATE 2 MG/ML CARP IV PRN (08:18)
[2021-05-11] MEDS ORDERED: traMADol HCL 50 MG TABLET PO PRN (08:18)
[2021-05-11] MEDS ORDERED: GLUCAGON FOR INJ 1 MG VIAL SQ PRN (08:18)
[2021-05-11] MEDS ORDERED: GLUCOSE 40% GEL 15 GM TUBE PO PRN (08:18)
[2021-05-11] MEDS ORDERED: DEXTROSE 50% 50 ML SYRINGE IV PRN (08:18)
[2021-05-11] MEDS ORDERED: CARBOHYDRATES FOR HYPOGLYCEMIA PO PRN (08:18)
[2021-05-11] MEDS ORDERED: ACETAMINOPHEN 325 MG TAB PO PRN (08:18)
--- NOTE | 2021-05-11 09:10 | Gastrointestinal Consultation ---
Date of Consultation May 11, 2021 Assessment & Plan (1) UGIB (upper gastrointestinal bleed): 65 year old female admitted w/ nausea, hematemesis at 0100 admitted w/ anemia, HGB 7.8 w/ BUN 53. INR of 4.9 NPO Repeat INR IV PPI bolus and drip If INR less than 1.9 plan for EGD today If INR >2 EGD tomorrow Hold coumadin Trend H&H Transfuse PRN Thank you for allowing us to participate in the care of this patient. Please call with any acute changes, questions or concerns. Please see addendum below with additional recommendation from my supervising physician. Supervising Physician Co-Signing Physician Notes Reports of vomiting up blood through the ER but none overnite. PE- well nourished fm in nad, HEENT- perrla, Abd - soft nt nd 6 gram drop in hgb, bun rise No prior egd's on review, no known history of liver disease INR remains elevated at 5, s/p vitamin k, repeat INR pending. Given she currently appears stable, IV PPI today, npo likely egd tomorrow if INR is less than 2. History of Present Illness Reason for Consultation: hematemesis Requesting Physician: jessica Attending Physician: Brain Hernandez MD History of Present Illness 65 year old female with history of chronic diastolic heart failure (EF 55%, TTE 2019), history nonischemic/compaction cardiomyopathy status post ICD on Coumadin, chronic left bundle branch block, hypertension, hyperlipidemia, right breast cancer status post surgery/radiation on anastrozole admitted through the ED w/ hematemesis, onset last evening. Notes felt unwell w/ upset stomach after eating dinner. Woke up around 0100 with nausea, emesis x 3 episodes with fresh blood. Has not moved her bowels since emesis episodes deneis lightheadedness, dizziness, CP, SOB Denies NSAIDs + coumadin w/ INR 5 Allergies Allergy/AdvReac Type Severity Reaction Status Date / Time No Known Allergies Allergy Verified 05/11/21 02:27 Home Medications Medication Instructions Recorded Confirmed Type furosemide 20 mg tablet 20 mg PO DAILY 07/30/19 05/11/21 History anastrozole 1 mg tablet 1 mg PO DAILY 05/11/21 05/11/21 History digoxin 125 mcg (0.125 mg) tablet 0.125 mcg PO DAILY 05/11/21 05/11/21 History lisinopril 2.5 mg tablet 2.5 mg PO DAILY 05/11/21 05/11/21 History metoprolol succinate 100 mg 100 mg PO DAILY 05/11/21 05/11/21 History tablet,extended release 24 hr metoprolol succinate 25 mg 25 mg PO DAILY 05/11/21 05/11/21 History tablet,extended release 24 hr simvastatin 20 mg tablet 20 mg PO HS 05/11/21 05/11/21 History solifenacin 5 mg tablet 5 mg PO DAILY 05/11/21 05/11/21 History spironolactone 25 mg tablet 25 mg PO DAILY 05/11/21 05/11/21 History warfarin 5 mg tablet See Rx Instructions .ROUTE .COMPLEX 05/11/21 05/11/21 History Patient History Social History Smoking Status: Never smoker Hx Alcohol Use: No Hx Substance Use: No Preferred Language: Spanish Communication Ability: Effective 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 Beliefs That Will Affect Care: None Current Living Situation: Spouse Feels Safe at Home: Yes Safety Concerns: Feels Safe At This Time Review of Systems Review of Systems: All systems reviewed & are unremarkable except as noted in HPI & below Physical Exam Constitutional: WD/WN, vitals as above Neck: trachea midline, no thyromegaly Respiratory: normal respiratory effort; no respiratory distress and no cough Gastrointestinal (Abdomen): normal bowel sounds, soft, nontender, no hepatosplenomegaly Skin: no rashes, warm and dry Results & Data ([facility]) Vital Signs (Past 12 Hours) Vital Signs Temp Pulse Pulse Resp BP BP BP 05/11/21 08:20 36.8 C 106 H 18 133/86 05/11/21 08:00 36.8 C 106 H 18 133/86 05/11/21 07:30 100 H 20 108/65 05/11/21 06:56 36.5 C 101 H 20 127/84 05/11/21 06:32 111 H 05/11/21 06:28 36.7 C 104 H 16 128/81 05/11/21 06:00 36.7 C 114 H 16 128/81 05/11/21 05:55 37 C 107 H 16 124/73 05/11/21 05:51 37.4 C 102 H 16 126/70 05/11/21 05:46 36.7 C 100 H 16 128/73 05/11/21 05:41 36.7 C 88 16 108/70 05/11/21 04:30 76 23 125/98 05/11/21 04:00 91 H 24 120/76 05/11/21 03:37 102 H 22 112/75 05/11/21 03:02 100 H 18 124/70 05/11/21 02:12 122 H 20 124/70 05/11/21 02:04 114 H 24 124/70 05/11/21 02:00 37.5 C 122 H 16 124/70 Pulse Ox 05/11/21 08:20 99 05/11/21 08:00 99 05/11/21 07:30 97 05/11/21 06:56 94 05/11/21 06:32 05/11/21 06:28 97 05/11/21 06:00 99 05/11/21 05:55 97 05/11/21 05:51 96 05/11/21 05:46 97 05/11/21 05:41 100 05/11/21 04:30 97 05/11/21 04:00 96 05/11/21 03:37 97 05/11/21 03:02 99 05/11/21 02:12 97 05/11/21 02:04 97 05/11/21 02:00 99 Laboratory Results 05/11/21 05/11/21 05/11/21 Range/Units 08:01 03:54 03:54 WBC (4.8-10.8) K/uL RBC (4.2-5.4) M/uL Hgb (12.0-16.0) g/dL Hct (37-47) % MCV (80-100) fL MCH (25-34) pg MCHC (32-36) g/dL RDW Std Deviation (36.4-46.3) fL RDW Coeff of [place] (11.5-14.5) % Plt Count (130-400) K/uL MPV (7.4-10.4) fL Immature Gran % (Auto) % Neut % (Auto) % Lymph % (Auto) % [place] % (Auto) % Eos % (Auto) % Baso % (Auto) % Neut # (Auto) (1.4-6.5) K/uL Lymph # (Auto) (1.2-3.4) K/uL [place] # (Auto) (0.11-0.59) K/uL Eos # (Auto) (0-0.5) K/uL Baso # (Auto) (0-0.2) K/uL Immature Gran # (Auto) (0.00-0.02) K/uL PT (9.0-12.0) Seconds INR (0.9-1.1) Sodium (136-145) mmol/L Potassium (3.5-5.1) mmol/L Chloride (98-107) mmol/L Carbon Dioxide (21-32) mmol/L Anion Gap (3-11) BUN (7-18) mg/dl Creatinine (0.6-1.2) mg/dl Est Cr Clr Drug Dosing ml/min Est GFR ( Amer) ml/min Est GFR (Non-Af Amer) ml/min BUN/Creatinine Ratio (10-20) Glucose (70-99) mg/dl POC Glucose 175 H (70-99) mg/dl Estimat Average Glucose mg/dl Hemoglobin A1c (4.5-5.6) % Lactate (0.4-2.0) mmol/L Calcium (8.5-10.1) mg/dl Magnesium (1.8-2.4) mg/dl Total Bilirubin (0.2-1) mg/dl AST (15-37) U/L ALT (12-78) U/L Alkaline Phosphatase (45-117) U/L Troponin I (0-0.045) ng/ml NT-Pro-B Natriuret Pep (0-900) pg/ml Total Protein (6.4-8.2) gm/dl Albumin (3.4-5.0) gm/dl Globulin (2.5-4.0) gm/dl Albumin/Globulin Ratio (0.9-2) Lipase (73-393) U/L Procalcitonin (0-0.5) ng/ml TSH (0.300-4.500) uIu/ml Digoxin (0.8-2.0) ng/ml COVID-19 Eval Order Covid19 at [facility] SARS-CoV-2 (PCR) NEGATIVE (Negative) Blood Type Antibody Screen Crossmatch 05/11/21 05/11/21 05/11/21 Range/Units 03:54 03:54 02:24 WBC (4.8-10.8) K/uL RBC (4.2-5.4) M/uL Hgb 7.8 L (12.0-16.0) g/dL Hct 23.7 L (37-47) % MCV (80-100) fL MCH (25-34) pg MCHC (32-36) g/dL RDW Std Deviation (36.4-46.3) fL RDW Coeff of [place] (11.5-14.5) % Plt Count (130-400) K/uL MPV (7.4-10.4) fL Immature Gran % (Auto) % Neut % (Auto) % Lymph % (Auto) % [place] % (Auto) % Eos % (Auto) % Baso % (Auto) % Neut # (Auto) (1.4-6.5) K/uL Lymph # (Auto) (1.2-3.4) K/uL [place] # (Auto) (0.11-0.59) K/uL Eos # (Auto) (0-0.5) K/uL Baso # (Auto) (0-0.2) K/uL Immature Gran # (Auto) (0.00-0.02) K/uL PT (9.0-12.0) Seconds INR (0.9-1.1) Sodium (136-145) mmol/L Potassium (3.5-5.1) mmol/L Chloride (98-107) mmol/L Carbon Dioxide (21-32) mmol/L Anion Gap (3-11) BUN (7-18) mg/dl Creatinine (0.6-1.2) mg/dl Est Cr Clr Drug Dosing ml/min Est GFR ( Amer) ml/min Est GFR (Non-Af Amer) ml/min BUN/Creatinine Ratio (10-20) Glucose (70-99) mg/dl POC Glucose (70-99) mg/dl Estimat Average Glucose mg/dl Hemoglobin A1c (4.5-5.6) % Lactate 4.2 H* (0.4-2.0) mmol/L Calcium (8.5-10.1) mg/dl Magnesium (1.8-2.4) mg/dl Total Bilirubin (0.2-1) mg/dl AST (15-37) U/L ALT (12-78) U/L Alkaline Phosphatase (45-117) U/L Troponin I (0-0.045) ng/ml NT-Pro-B Natriuret Pep (0-900) pg/ml Total Protein (6.4-8.2) gm/dl Albumin (3.4-5.0) gm/dl Globulin (2.5-4.0) gm/dl Albumin/Globulin Ratio (0.9-2) Lipase (73-393) U/L Procalcitonin (0-0.5) ng/ml TSH (0.300-4.500) uIu/ml Digoxin (0.8-2.0) ng/ml COVID-19 Eval Order SARS-CoV-2 (PCR) (Negative) Blood Type B Positive Antibody Screen NEGATIVE Crossmatch See Detail 05/11/21 05/11/21 05/11/21 Range/Units 02:15 02:15 02:15 WBC (4.8-10.8) K/uL RBC (4.2-5.4) M/uL Hgb (12.0-16.0) g/dL Hct (37-47) % MCV (80-100) fL MCH (25-34) pg MCHC (32-36) g/dL RDW Std Deviation (36.4-46.3) fL RDW Coeff of [place] (11.5-14.5) % Plt Count (130-400) K/uL MPV (7.4-10.4) fL Immature Gran % (Auto) % Neut % (Auto) % Lymph % (Auto) % [place] % (Auto) % Eos % (Auto) % Baso % (Auto) % Neut # (Auto) (1.4-6.5) K/uL Lymph # (Auto) (1.2-3.4) K/uL [place] # (Auto) (0.11-0.59) K/uL Eos # (Auto) (0-0.5) K/uL Baso # (Auto) (0-0.2) K/uL Immature Gran # (Auto) (0.00-0.02) K/uL PT (9.0-12.0) Seconds INR (0.9-1.1) Sodium (136-145) mmol/L Potassium (3.5-5.1) mmol/L Chloride (98-107) mmol/L Carbon Dioxide (21-32) mmol/L Anion Gap (3-11) BUN (7-18) mg/dl Creatinine (0.6-1.2) mg/dl Est Cr Clr Drug Dosing ml/min Est GFR ( Amer) ml/min Est GFR (Non-Af Amer) ml/min BUN/Creatinine Ratio (10-20) Glucose (70-99) mg/dl POC Glucose (70-99) mg/dl Estimat Average Glucose 157 mg/dl Hemoglobin A1c 7.1 H (4.5-5.6) % Lactate (0.4-2.0) mmol/L Calcium (8.5-10.1) mg/dl Magnesium (1.8-2.4) mg/dl Total Bilirubin (0.2-1) mg/dl AST (15-37) U/L ALT (12-78) U/L Alkaline Phosphatase (45-117) U/L Troponin I (0-0.045) ng/ml NT-Pro-B Natriuret Pep (0-900) pg/ml Total Protein (6.4-8.2) gm/dl Albumin (3.4-5.0) gm/dl Globulin (2.5-4.0) gm/dl Albumin/Globulin Ratio (0.9-2) Lipase (73-393) U/L Procalcitonin 0.07 (0-0.5) ng/ml TSH (0.300-4.500) uIu/ml Digoxin 0.4 L (0.8-2.0) ng/ml COVID-19 Eval Order SARS-CoV-2 (PCR) (Negative) Blood Type Antibody Screen Crossmatch 05/11/21 05/11/21 05/11/21 Range/Units 02:15 02:15 02:15 WBC 14.56 H (4.8-10.8) K/uL RBC 3.72 L (4.2-5.4) M/uL Hgb 9.8 L (12.0-16.0) g/dL Hct 29.9 L (37-47) % MCV 80.4 (80-100) fL MCH 26.3 (25-34) pg MCHC 32.8 (32-36) g/dL RDW Std Deviation 39.5 (36.4-46.3) fL RDW Coeff of [place] 13.6 (11.5-14.5) % Plt Count 303 (130-400) K/uL MPV 10.2 (7.4-10.4) fL Immature Gran % (Auto) 0.7 % Neut % (Auto) 78.2 % Lymph % (Auto) 16.7 % [place] % (Auto) 4.0 % Eos % (Auto) 0.2 % Baso % (Auto) 0.2 % Neut # (Auto) 11.39 H (1.4-6.5) K/uL Lymph # (Auto) 2.43 (1.2-3.4) K/uL [place] # (Auto) 0.58 (0.11-0.59) K/uL Eos # (Auto) 0.03 (0-0.5) K/uL Baso # (Auto) 0.03 (0-0.2) K/uL Immature Gran # (Auto) 0.10 H (0.00-0.02) K/uL PT 43.5 H (9.0-12.0) Seconds INR 4.9 H (0.9-1.1) Sodium 137 (136-145) mmol/L Potassium 4.4 (3.5-5.1) mmol/L Chloride 109 H (98-107) mmol/L Carbon Dioxide 21 (21-32) mmol/L Anion Gap 7.0 (3-11) BUN 53 H (7-18) mg/dl Creatinine 0.87 (0.6-1.2) mg/dl Est Cr Clr Drug Dosing 73.9 ml/min Est GFR ( Amer) 81.6 ml/min Est GFR (Non-Af Amer) 70.4 ml/min BUN/Creatinine Ratio 61.0 H (10-20) Glucose 285 H (70-99) mg/dl POC Glucose (70-99) mg/dl Estimat Average Glucose mg/dl Hemoglobin A1c (4.5-5.6) % Lactate (0.4-2.0) mmol/L Calcium 9.1 (8.5-10.1) mg/dl Magnesium 1.8 (1.8-2.4) mg/dl Total Bilirubin 0.3 (0.2-1) mg/dl AST 15 (15-37) U/L ALT 34 (12-78) U/L Alkaline Phosphatase 74 (45-117) U/L Troponin I < 0.015 (0-0.045) ng/ml NT-Pro-B Natriuret Pep 59 (0-900) pg/ml Total Protein 6.6 (6.4-8.2) gm/dl Albumin 3.2 L (3.4-5.0) gm/dl Globulin 3.4 (2.5-4.0) gm/dl Albumin/Globulin Ratio 0.9 (0.9-2) Lipase 86 (73-393) U/L Procalcitonin (0-0.5) ng/ml TSH 0.895 (0.300-4.500) uIu/ml Digoxin (0.8-2.0) ng/ml COVID-19 Eval Order SARS-CoV-2 (PCR) (Negative) Blood Type Antibody Screen Crossmatch
--- NOTE | 2021-05-11 09:21 | XRay Report ---
XR chest 1V portable CLINICAL HISTORY: vomiting COMPARISON STUDY: Chest radiograph August 09, 2017. FINDINGS: Lung volumes are normal. There is no pneumothorax or pleural effusion. Left subclavian bive ntricular pacer/AICD is in place. Cardiomediastinal silhouette is stable. There is no evidence for pu lmonary edema or pneumonia. IMPRESSION: No acute cardiopulmonary findings. No change in appearance of the chest. ACT 112: Negative or not required by law. Electronically signed by: Jorge Simms M.D. 05/11/2021 9:20 AM
[2021-05-11] MEDS: INSULIN ASPART 100 UNITS/ML 3 ML PEN SC SCH ×4 (09:47→20:26)
[2021-05-11] MEDS: ANASTROZOLE 1 MG TAB PO SCH (10:02)
[2021-05-11 10:44] LABS: Hematocrit (blood only) 26.2 % (37-47); Hemoglobin 8.7 g/dL (12.0-16.0)
[2021-05-11 10:55] LABS: INR 1.6 (0.9-1.1); Prothrombin Time 15.7 Seconds (9.0-12.0)
[2021-05-11] MEDS: LACTATED RINGER'S 1,000 ML IV SCH (11:21)
[2021-05-11 12:52] LABS: Hematocrit (blood only) 25.5 % (37-47); Hemoglobin 8.5 g/dL (12.0-16.0)
[2021-05-11 15:17] LABS: INR 1.3 (0.9-1.1); Prothrombin Time 13.1 Seconds (9.0-12.0)
[2021-05-11 15:35] LABS: BUN Creatinine Ratio 39.6 (10-20); Calcium 8.7 mg/dl (8.5-10.1); Creatinine Clr Calc Pharmacy 75.7 ml/min; Est GFR (African American) 83.9 ml/min; Est GFR (Non-African American) 72.4 ml/min; Magnesium 2.2 mg/dl (1.8-2.4); Phosphorus 2.2 mg/dl (2.5-4.9); Potassium 4.2 mmol/L (3.5-5.1)
[2021-05-11] MEDS: DIGOXIN 0.125 MG TAB PO SCH (16:49)
[2021-05-11] MEDS: [UNRECOGNIZED DRUG - OTHER] SCH (16:49)
[2021-05-11] MEDS ORDERED: SODIUM PHOSPHATE 3 MMOL/1 ML INFUSION IV STA (17:45)
[2021-05-11] MEDS ORDERED: SODIUM PHOSPHATE 9 MMOL in SODIUM CHLORIDE 0.9% 250 ML IV ONE (18:00)
[2021-05-11 18:43] LABS: Hematocrit (blood only) 24.9 % (37-47)
[2021-05-11] MEDS: SIMVASTATIN 20 MG TAB PO SCH (20:31)
[2021-05-11 21:15] LABS: INR 1.2 (0.9-1.1)
[2021-05-11 22:56] LABS: Appearance Urine Clear (Clear); Bilirubin Urine Negative (Negative); Blood Urine Negative (Negative); Color Urine Yellow; Glucose Urine UA Negative (Negative); Ketones Urine Negative (Negative); Leukocyte Esterase Urine Negative (Negative); Nitrite Urine Negative (Negative); Protein Urine Negative (Negative); Specific Gravity Urine 1.013 (1.000-1.030); Urobilinogen Urine Negative (Negative)
[2021-05-12] MEDS: [UNRECOGNIZED DRUG - OTHER] SCH ×2 (00:07→15:07)
[2021-05-12] MEDS: LACTATED RINGER'S 1,000 ML IV SCH ×2 (00:27→06:00)
[2021-05-12] MEDS: PANTOprazole 40 MG in DEXTROSE 5% 100 ML IV SCH ×3 (04:52→19:25)
--- NOTE | 2021-05-12 05:41 | Electrocardiogram Report ---
Test Reason : Blood Pressure : / mmHG Vent. Rate : 102 BPM Atrial Rate : 102 BPM P-R Int : 120 ms QRS Dur : 128 ms QT Int : 394 ms P-R-T Axes : 043 -48 101 degrees QTc Int : 513 ms Atrial-sensed ventricular-paced rhythm Abnormal ECG When compared with ECG of 09-AUG-2017 09:48, Vent. rate has increased BY 42 BPM Confirmed by Mendez Goldsmith ([id number]) on 05/12/2021 5:40:40 AM Referred By: REFERRED SELF Confirmed By:Mendez Goldsmith
[2021-05-12 06:33] LABS: Basophils # (auto) 0.01 K/uL (0-0.2); Basophils % (auto) 0.1 %; Eosinophils # (auto) 0.16 K/uL (0-0.5); Eosinophils % (auto) 1.8 %; Hematocrit (blood only) 23.5 % (37-47); Immature Granulocytes # (auto) 0.06 K/uL (0.00-0.02); Immature Granulocytes % (auto) 0.7 %; Lymphocytes # (auto) 2.04 K/uL (1.2-3.4); Lymphocytes % (auto) 22.3 %; Mean Corpuscular Hemoglobin 28.2 pg (25-34); Mean Corpuscular Volume 82.7 fL (80-100); Mean Platelet Volume 9.6 fL (7.4-10.4); Monocytes # (auto) 0.57 K/uL (0.11-0.59); Monocytes % (auto) 6.2 %; Neutrophils # (auto) 6.29 K/uL (1.4-6.5); Neutrophils % (auto) 68.9 %; Platelet Count 161 K/uL (130-400); RDW Coefficient of Variation 14.7 % (11.5-14.5); RDW Standard Deviation 44.5 fL (36.4-46.3); Red Blood Count 2.84 M/uL (4.2-5.4); White Blood Count 9.13 K/uL (4.8-10.8)
[2021-05-12 06:43] LABS: INR 1.2 (0.9-1.1); Prothrombin Time 11.6 Seconds (9.0-12.0)
[2021-05-12 07:12] LABS: BUN Creatinine Ratio 23.3 (10-20); Calcium 8.4 mg/dl (8.5-10.1); Creatinine Clr Calc Pharmacy 82.3 ml/min; Est GFR (African American) 94.6 ml/min; Est GFR (Non-African American) 81.6 ml/min; Potassium 3.8 mmol/L (3.5-5.1)
[2021-05-12 08:02] LABS: Hematocrit (blood only) 25.5 % (37-47); Hemoglobin 8.4 g/dL (12.0-16.0)
[2021-05-12] MEDS ORDERED: SODIUM CHLORIDE 0.9% 250 ML IV PRN (08:14)
--- NOTE | 2021-05-12 08:17 | Hospitalist Progress Note ---
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 Vitamin K given on admission to reverse INR Hold Coumadin IV PPI Serial H&H, transfuse PRBC to obtain hemoglobin greater than 8 Pt now received 2 units of pRBC, will transfuse today (05/12) with 1 more unit IVF can now stop GI consult Re: GI bleed S/ P EGD (05/12/2021) Impression: - Normal esophagus. - Z-line regular. - Erythematous mucosa in the antrum. Biopsied. - Normal stomach. - Normal duodenal bulb and second portion of the duodenum. Recommendation: - Await pathology results. - Change PPI to IV BID. - Advance diet as tolerated. - She will be informed of biopsy results. Advance diet to clear liquids, will order Carafate in addition to PPI Continue to closely monitor Chronic diastolic heart failure (EF 55%, TTE 2019), patient on the dry side on admission Chronic left bundle branch block Hypertension, BP stable although on the lower side on admission Appropriate to hold antihypertensives for now until hemodynamics stable. Hyperlipidemia on statin Rx DM type 2, Hyperglycemia on admission - outpatient hemoglobin A1c of 6.18 August 2020 (patient unaware) Current hemoglobin A1c 7.1%, DM education Basal insulin adjusted for n.p.o. status, ISS BG goal 110-1 40 Right breast cancer status post surgery/radiation on anastrozole, in remission DVT prophylaxis. SCDs Full code Patient's - Mr. Joshua Childs, contact #[phone]. Admission and Anticipated Discharge Date Admission Date: May 11, 2021 Subjective Patient seen in follow-up of hematemesis, acute blood loss anemia Yesterday on admission received 1 unit of blood, hematemesis then resolved, patient was n.p.o. plan for EGD initially yesterday, switched for today INR reversed Received another unit of packed red blood cells overnight, hemoglobin unchanged, at 8 this morning Will order 1 unit of packed red blood cells now Currently laying in bed in no acute distress Had uneventful night No more emesis, had one dark stool yesterday No fevers, chills, chest pain, shortness of breath Reports she is holding onto things while walking, to make sure that she does not fall Review of Systems Review of Systems: All systems reviewed & are unremarkable except as noted in Subjective Physical Exam Physical Exam: GENERAL: obese F in NAD HEENT: NC/AT, EOMI, PERRL NECK : Supple, short neck, no tenderness CHEST : CTA, no tenderness HEART : RRR, no obvious murmurs ABDOMEN: soft, some distention, nontender EXTREMITIES : Minimal LE swelling, no LE tenderness, moves extremities SKIN: Pallor, warm NEUROLOGIC : Coherent, no facial asymmetry, speech fluent, moves extremities Results & Data Results & Data ([facility]) Vital Signs (Past 12 Hours) Vital Signs Temp Pulse Pulse Resp BP BP Pulse Ox 05/12/21 08:05 36.9 C 88 114/67 95 05/12/21 03:00 36.9 C 94 H 20 113/65 97 05/12/21 01:21 98 H 05/11/21 23:30 37 C 96 H 20 102/68 97 05/11/21 23:17 37.2 C 98 H 16 102/65 05/11/21 22:30 37.1 C 95 H 16 103/65 95 05/11/21 22:00 37.2 C 96 H 18 118/75 98 05/11/21 21:45 37.2 C 94 H 16 109/67 97 05/11/21 21:28 37.0 C 97 H 16 117/70 98 Laboratory Results 05/12/21 05/12/21 05/12/21 Range/Units 07:44 07:17 06:01 WBC (4.8-10.8) K/uL RBC (4.2-5.4) M/uL Hgb 8.4 L (12.0-16.0) g/dL Hct 25.5 L (37-47) % MCV (80-100) fL MCH (25-34) pg MCHC (32-36) g/dL RDW Std Deviation (36.4-46.3) fL RDW Coeff of [place] (11.5-14.5) % Plt Count (130-400) K/uL MPV (7.4-10.4) fL Immature Gran % (Auto) % Neut % (Auto) % Lymph % (Auto) % [place] % (Auto) % Eos % (Auto) % Baso % (Auto) % Neut # (Auto) (1.4-6.5) K/uL Lymph # (Auto) (1.2-3.4) K/uL [place] # (Auto) (0.11-0.59) K/uL Eos # (Auto) (0-0.5) K/uL Baso # (Auto) (0-0.2) K/uL Immature Gran # (Auto) (0.00-0.02) K/uL PT (9.0-12.0) Seconds INR (0.9-1.1) Sodium 140 (136-145) mmol/L Potassium 3.8 (3.5-5.1) mmol/L Chloride 110 H (98-107) mmol/L Carbon Dioxide 24 (21-32) mmol/L Anion Gap 6.0 (3-11) BUN 18 (7-18) mg/dl Creatinine 0.77 (0.6-1.2) mg/dl Est Cr Clr Drug Dosing 82.3 ml/min Est GFR ( Amer) 94.6 ml/min Est GFR (Non-Af Amer) 81.6 ml/min BUN/Creatinine Ratio 23.3 H (10-20) Glucose 110 H (70-99) mg/dl POC Glucose 125 H (70-99) mg/dl Lactate (0.4-2.0) mmol/L Calcium 8.4 L (8.5-10.1) mg/dl Phosphorus (2.5-4.9) mg/dl Magnesium (1.8-2.4) mg/dl Urine Color Urine Appearance (Clear) Urine pH (4.5-7.5) Ur Specific [place] (1.000-1.030) Urine Protein (Negative) Urine Glucose (UA) (Negative) Urine Ketones (Negative) Urine Blood (Negative) Urine Nitrite (Negative) Urine Bilirubin (Negative) Urine Urobilinogen (Negative) Ur Leukocyte Esterase (Negative) Blood Type Blood Type Recheck Antibody Screen Crossmatch 05/12/21 05/12/21 05/11/21 Range/Units 06:01 06:01 23:59 WBC 9.13 (4.8-10.8) K/uL RBC 2.84 L (4.2-5.4) M/uL Hgb 8.0 L (12.0-16.0) g/dL Hct 23.5 L (37-47) % MCV 82.7 (80-100) fL MCH 28.2 (25-34) pg MCHC 34.0 (32-36) g/dL RDW Std Deviation 44.5 (36.4-46.3) fL RDW Coeff of [place] 14.7 H (11.5-14.5) % Plt Count 161 (130-400) K/uL MPV 9.6 (7.4-10.4) fL Immature Gran % (Auto) 0.7 % Neut % (Auto) 68.9 % Lymph % (Auto) 22.3 % [place] % (Auto) 6.2 % Eos % (Auto) 1.8 % Baso % (Auto) 0.1 % Neut # (Auto) 6.29 (1.4-6.5) K/uL Lymph # (Auto) 2.04 (1.2-3.4) K/uL [place] # (Auto) 0.57 (0.11-0.59) K/uL Eos # (Auto) 0.16 (0-0.5) K/uL Baso # (Auto) 0.01 (0-0.2) K/uL Immature Gran # (Auto) 0.06 H (0.00-0.02) K/uL PT 11.6 (9.0-12.0) Seconds INR 1.2 H (0.9-1.1) Sodium (136-145) mmol/L Potassium (3.5-5.1) mmol/L Chloride (98-107) mmol/L Carbon Dioxide (21-32) mmol/L Anion Gap (3-11) BUN (7-18) mg/dl Creatinine (0.6-1.2) mg/dl Est Cr Clr Drug Dosing ml/min Est GFR ( Amer) ml/min Est GFR (Non-Af Amer) ml/min BUN/Creatinine Ratio (10-20) Glucose (70-99) mg/dl POC Glucose 106 H (70-99) mg/dl Lactate (0.4-2.0) mmol/L Calcium (8.5-10.1) mg/dl Phosphorus (2.5-4.9) mg/dl Magnesium (1.8-2.4) mg/dl Urine Color Urine Appearance (Clear) Urine pH (4.5-7.5) Ur Specific [place] (1.000-1.030) Urine Protein (Negative) Urine Glucose (UA) (Negative) Urine Ketones (Negative) Urine Blood (Negative) Urine Nitrite (Negative) Urine Bilirubin (Negative) Urine Urobilinogen (Negative) Ur Leukocyte Esterase (Negative) Blood Type Blood Type Recheck Antibody Screen Crossmatch 05/11/21 05/11/21 05/11/21 Range/Units 22:10 20:38 20:23 WBC (4.8-10.8) K/uL RBC (4.2-5.4) M/uL Hgb (12.0-16.0) g/dL Hct (37-47) % MCV (80-100) fL MCH (25-34) pg MCHC (32-36) g/dL RDW Std Deviation (36.4-46.3) fL RDW Coeff of [place] (11.5-14.5) % Plt Count (130-400) K/uL MPV (7.4-10.4) fL Immature Gran % (Auto) % Neut % (Auto) % Lymph % (Auto) % [place] % (Auto) % Eos % (Auto) % Baso % (Auto) % Neut # (Auto) (1.4-6.5) K/uL Lymph # (Auto) (1.2-3.4) K/uL [place] # (Auto) (0.11-0.59) K/uL Eos # (Auto) (0-0.5) K/uL Baso # (Auto) (0-0.2) K/uL Immature Gran # (Auto) (0.00-0.02) K/uL PT 12.0 (9.0-12.0) Seconds INR 1.2 H (0.9-1.1) Sodium (136-145) mmol/L Potassium (3.5-5.1) mmol/L Chloride (98-107) mmol/L Carbon Dioxide (21-32) mmol/L Anion Gap (3-11) BUN (7-18) mg/dl Creatinine (0.6-1.2) mg/dl Est Cr Clr Drug Dosing ml/min Est GFR ( Amer) ml/min Est GFR (Non-Af Amer) ml/min BUN/Creatinine Ratio (10-20) Glucose (70-99) mg/dl POC Glucose 114 H (70-99) mg/dl Lactate (0.4-2.0) mmol/L Calcium (8.5-10.1) mg/dl Phosphorus (2.5-4.9) mg/dl Magnesium (1.8-2.4) mg/dl Urine Color Yellow Urine Appearance Clear (Clear) Urine pH 6.0 (4.5-7.5) Ur Specific [place] 1.013 (1.000-1.030) Urine Protein Negative (Negative) Urine Glucose (UA) Negative (Negative) Urine Ketones Negative (Negative) Urine Blood Negative (Negative) Urine Nitrite Negative (Negative) Urine Bilirubin Negative (Negative) Urine Urobilinogen Negative (Negative) Ur Leukocyte Esterase Negative (Negative) Blood Type Blood Type Recheck Antibody Screen Crossmatch 05/11/21 05/11/21 05/11/21 Range/Units 18:25 18:25 18:25 WBC (4.8-10.8) K/uL RBC (4.2-5.4) M/uL Hgb 8.0 L (12.0-16.0) g/dL Hct 24.9 L (37-47) % MCV (80-100) fL MCH (25-34) pg MCHC (32-36) g/dL RDW Std Deviation (36.4-46.3) fL RDW Coeff of [place] (11.5-14.5) % Plt Count (130-400) K/uL MPV (7.4-10.4) fL Immature Gran % (Auto) % Neut % (Auto) % Lymph % (Auto) % [place] % (Auto) % Eos % (Auto) % Baso % (Auto) % Neut # (Auto) (1.4-6.5) K/uL Lymph # (Auto) (1.2-3.4) K/uL [place] # (Auto) (0.11-0.59) K/uL Eos # (Auto) (0-0.5) K/uL Baso # (Auto) (0-0.2) K/uL Immature Gran # (Auto) (0.00-0.02) K/uL PT (9.0-12.0) Seconds INR (0.9-1.1) Sodium (136-145) mmol/L Potassium (3.5-5.1) mmol/L Chloride (98-107) mmol/L Carbon Dioxide (21-32) mmol/L Anion Gap (3-11) BUN (7-18) mg/dl Creatinine (0.6-1.2) mg/dl Est Cr Clr Drug Dosing ml/min Est GFR ( Amer) ml/min Est GFR (Non-Af Amer) ml/min BUN/Creatinine Ratio (10-20) Glucose (70-99) mg/dl POC Glucose (70-99) mg/dl Lactate 4.1 H* (0.4-2.0) mmol/L Calcium (8.5-10.1) mg/dl Phosphorus (2.5-4.9) mg/dl Magnesium (1.8-2.4) mg/dl Urine Color Urine Appearance (Clear) Urine pH (4.5-7.5) Ur Specific [place] (1.000-1.030) Urine Protein (Negative) Urine Glucose (UA) (Negative) Urine Ketones (Negative) Urine Blood (Negative) Urine Nitrite (Negative) Urine Bilirubin (Negative) Urine Urobilinogen (Negative) Ur Leukocyte Esterase (Negative) Blood Type Blood Type Recheck B Positive Antibody Screen Crossmatch 05/11/21 05/11/21 05/11/21 Range/Units 16:38 14:46 14:46 WBC (4.8-10.8) K/uL RBC (4.2-5.4) M/uL Hgb (12.0-16.0) g/dL Hct (37-47) % MCV (80-100) fL MCH (25-34) pg MCHC (32-36) g/dL RDW Std Deviation (36.4-46.3) fL RDW Coeff of [place] (11.5-14.5) % Plt Count (130-400) K/uL MPV (7.4-10.4) fL Immature Gran % (Auto) % Neut % (Auto) % Lymph % (Auto) % [place] % (Auto) % Eos % (Auto) % Baso % (Auto) % Neut # (Auto) (1.4-6.5) K/uL Lymph # (Auto) (1.2-3.4) K/uL [place] # (Auto) (0.11-0.59) K/uL Eos # (Auto) (0-0.5) K/uL Baso # (Auto) (0-0.2) K/uL Immature Gran # (Auto) (0.00-0.02) K/uL PT 13.1 H (9.0-12.0) Seconds INR 1.3 H (0.9-1.1) Sodium 140 (136-145) mmol/L Potassium 4.2 (3.5-5.1) mmol/L Chloride 111 H (98-107) mmol/L Carbon Dioxide 23 (21-32) mmol/L Anion Gap 6.0 (3-11) BUN 34 H (7-18) mg/dl Creatinine 0.85 (0.6-1.2) mg/dl Est Cr Clr Drug Dosing 75.7 ml/min Est GFR ( Amer) 83.9 ml/min Est GFR (Non-Af Amer) 72.4 ml/min BUN/Creatinine Ratio 39.6 H (10-20) Glucose 126 H (70-99) mg/dl POC Glucose 104 H (70-99) mg/dl Lactate (0.4-2.0) mmol/L Calcium 8.7 (8.5-10.1) mg/dl Phosphorus 2.2 L (2.5-4.9) mg/dl Magnesium 2.2 (1.8-2.4) mg/dl Urine Color Urine Appearance (Clear) Urine pH (4.5-7.5) Ur Specific [place] (1.000-1.030) Urine Protein (Negative) Urine Glucose (UA) (Negative) Urine Ketones (Negative) Urine Blood (Negative) Urine Nitrite (Negative) Urine Bilirubin (Negative) Urine Urobilinogen (Negative) Ur Leukocyte Esterase (Negative) Blood Type Blood Type Recheck Antibody Screen Crossmatch 05/11/21 05/11/21 05/11/21 Range/Units 12:53 12:20 11:45 WBC (4.8-10.8) K/uL RBC (4.2-5.4) M/uL Hgb 8.5 L (12.0-16.0) g/dL Hct 25.5 L (37-47) % MCV (80-100) fL MCH (25-34) pg MCHC (32-36) g/dL RDW Std Deviation (36.4-46.3) fL RDW Coeff of [place] (11.5-14.5) % Plt Count (130-400) K/uL MPV (7.4-10.4) fL Immature Gran % (Auto) % Neut % (Auto) % Lymph % (Auto) % [place] % (Auto) % Eos % (Auto) % Baso % (Auto) % Neut # (Auto) (1.4-6.5) K/uL Lymph # (Auto) (1.2-3.4) K/uL [place] # (Auto) (0.11-0.59) K/uL Eos # (Auto) (0-0.5) K/uL Baso # (Auto) (0-0.2) K/uL Immature Gran # (Auto) (0.00-0.02) K/uL PT (9.0-12.0) Seconds INR (0.9-1.1) Sodium (136-145) mmol/L Potassium (3.5-5.1) mmol/L Chloride (98-107) mmol/L Carbon Dioxide (21-32) mmol/L Anion Gap (3-11) BUN (7-18) mg/dl Creatinine (0.6-1.2) mg/dl Est Cr Clr Drug Dosing ml/min Est GFR ( Amer) ml/min Est GFR (Non-Af Amer) ml/min BUN/Creatinine Ratio (10-20) Glucose (70-99) mg/dl POC Glucose 152 H (70-99) mg/dl Lactate 4.5 H* (0.4-2.0) mmol/L Calcium (8.5-10.1) mg/dl Phosphorus (2.5-4.9) mg/dl Magnesium (1.8-2.4) mg/dl Urine Color Urine Appearance (Clear) Urine pH (4.5-7.5) Ur Specific [place] (1.000-1.030) Urine Protein (Negative) Urine Glucose (UA) (Negative) Urine Ketones (Negative) Urine Blood (Negative) Urine Nitrite (Negative) Urine Bilirubin (Negative) Urine Urobilinogen (Negative) Ur Leukocyte Esterase (Negative) Blood Type Blood Type Recheck Antibody Screen Crossmatch 05/11/21 05/11/21 05/11/21 Range/Units 10:37 10:37 10:37 WBC (4.8-10.8) K/uL RBC (4.2-5.4) M/uL Hgb 8.7 L (12.0-16.0) g/dL Hct 26.2 L (37-47) % MCV (80-100) fL MCH (25-34) pg MCHC (32-36) g/dL RDW Std Deviation (36.4-46.3) fL RDW Coeff of [place] (11.5-14.5) % Plt Count (130-400) K/uL MPV (7.4-10.4) fL Immature Gran % (Auto) % Neut % (Auto) % Lymph % (Auto) % [place] % (Auto) % Eos % (Auto) % Baso % (Auto) % Neut # (Auto) (1.4-6.5) K/uL Lymph # (Auto) (1.2-3.4) K/uL [place] # (Auto) (0.11-0.59) K/uL Eos # (Auto) (0-0.5) K/uL Baso # (Auto) (0-0.2) K/uL Immature Gran # (Auto) (0.00-0.02) K/uL PT 15.7 H (9.0-12.0) Seconds INR 1.6 H (0.9-1.1) Sodium (136-145) mmol/L Potassium (3.5-5.1) mmol/L Chloride (98-107) mmol/L Carbon Dioxide (21-32) mmol/L Anion Gap (3-11) BUN (7-18) mg/dl Creatinine (0.6-1.2) mg/dl Est Cr Clr Drug Dosing ml/min Est GFR ( Amer) ml/min Est GFR (Non-Af Amer) ml/min BUN/Creatinine Ratio (10-20) Glucose (70-99) mg/dl POC Glucose (70-99) mg/dl Lactate 2.9 H* (0.4-2.0) mmol/L Calcium (8.5-10.1) mg/dl Phosphorus (2.5-4.9) mg/dl Magnesium (1.8-2.4) mg/dl Urine Color Urine Appearance (Clear) Urine pH (4.5-7.5) Ur Specific [place] (1.000-1.030) Urine Protein (Negative) Urine Glucose (UA) (Negative) Urine Ketones (Negative) Urine Blood (Negative) Urine Nitrite (Negative) Urine Bilirubin (Negative) Urine Urobilinogen (Negative) Ur Leukocyte Esterase (Negative) Blood Type Blood Type Recheck Antibody Screen Crossmatch 05/11/21 Range/Units 02:24 WBC (4.8-10.8) K/uL RBC (4.2-5.4) M/uL Hgb (12.0-16.0) g/dL Hct (37-47) % MCV (80-100) fL MCH (25-34) pg MCHC (32-36) g/dL RDW Std Deviation (36.4-46.3) fL RDW Coeff of [place] (11.5-14.5) % Plt Count (130-400) K/uL MPV (7.4-10.4) fL Immature Gran % (Auto) % Neut % (Auto) % Lymph % (Auto) % [place] % (Auto) % Eos % (Auto) % Baso % (Auto) % Neut # (Auto) (1.4-6.5) K/uL Lymph # (Auto) (1.2-3.4) K/uL [place] # (Auto) (0.11-0.59) K/uL Eos # (Auto) (0-0.5) K/uL Baso # (Auto) (0-0.2) K/uL Immature Gran # (Auto) (0.00-0.02) K/uL PT (9.0-12.0) Seconds INR (0.9-1.1) Sodium (136-145) mmol/L Potassium (3.5-5.1) mmol/L Chloride (98-107) mmol/L Carbon Dioxide (21-32) mmol/L Anion Gap (3-11) BUN (7-18) mg/dl Creatinine (0.6-1.2) mg/dl Est Cr Clr Drug Dosing ml/min Est GFR ( Amer) ml/min Est GFR (Non-Af Amer) ml/min BUN/Creatinine Ratio (10-20) Glucose (70-99) mg/dl POC Glucose (70-99) mg/dl Lactate (0.4-2.0) mmol/L Calcium (8.5-10.1) mg/dl Phosphorus (2.5-4.9) mg/dl Magnesium (1.8-2.4) mg/dl Urine Color Urine Appearance (Clear) Urine pH (4.5-7.5) Ur Specific [place] (1.000-1.030) Urine Protein (Negative) Urine Glucose (UA) (Negative) Urine Ketones (Negative) Urine Blood (Negative) Urine Nitrite (Negative) Urine Bilirubin (Negative) Urine Urobilinogen (Negative) Ur Leukocyte Esterase (Negative) Blood Type B Positive Blood Type Recheck Antibody Screen NEGATIVE Crossmatch See Detail Medications Administered Current Inpatient Medications Acetaminophen (Acetaminophen 325 Mg Tab) 650 mg PO Q4H PRN PRN Reason: Pain or Fever Stop: 06/10/21 08:17 Anastrozole (Anastrozole 1 Mg Tab) 1 mg PO DAILY CHARLINE Stop: 06/10/21 08:59 Last Admin: 05/11/21 10:02 Dose: 1 mg Documented by: Dextrose (Dextrose 50% 50 Ml Syringe) 25 - 50 ml IV UD PRN; Protocol PRN Reason: Hypoglycemia Protocol Stop: 06/10/21 08:17 Digoxin (Digoxin 0.125 Mg Tab) 0.125 mg PO DAILY@1600 CHARLINE Stop: 06/10/21 15:59 Last Admin: 05/11/21 16:49 Dose: 0.125 mg Documented by: Glucagon (Glucagon For Inj 1 Mg Vial) 1 mg SQ UD PRN; Protocol PRN Reason: Hypoglycemia Protocol Stop: 06/10/21 08:17 Glucose (Glucose 10 Tabs/Tube) 4 - 8 tabs PO UD PRN; Protocol PRN Reason: Hypoglycemia Protocol Stop: 06/10/21 08:17 Glucose (Glucose 40% Gel 15 Gm Tube) 15 - 30 gm PO UD PRN; Protocol PRN Reason: Hypoglycemia Protocol Stop: 06/10/21 08:17 Pantoprazole Sodium 40 mg/ (Dextrose) 100 mls @ 20 mls/hr IV Q5H CHARLINE Stop: 06/10/21 02:44 Last Infusion: 05/12/21 08:25 Dose: 0 mg/hr, 0 mls/hr Documented by: Lactated Ringer's (Lr) 1,000 mls @ 100 mls/hr IV .Q10H CHARLINE Stop: 06/10/21 10:29 Last Infusion: 05/12/21 08:25 Dose: 0 mls/hr Documented by: Promethazine HCl 12.5 mg/ (Sodium Chloride) 50.5 mls @ 202 mls/hr IV Q6H PRN PRN Reason: Nausea And Vomiting Stop: 06/10/21 08:17 Sodium Chloride (Nss) 250 mls @ 15 mls/hr IV .[id number] PRN PRN Reason: For Transfusion Stop: 05/12/21 18:14 Insulin Aspart (Insulin Aspart 100 Units/Ml 3 Ml Pen) 0 units SC ACHS CHARLINE Stop: 06/10/21 08:17 Last Admin: 05/11/21 20:26 Dose: Not Given Documented by: Insulin Glargine (Insulin Glargine Solostar 100 Units/Ml 3 Ml Pen) 5 units SC DAILY [facility] Stop: 06/11/21 08:59 Miscellaneous (Solifenacin - Order Awaiting Action) 1 ea N/A QS CHARLINE Stop: 06/10/21 15:59 Last Admin: 05/12/21 00:07 Dose: Not Given Documented by: Miscellaneous (Carbohydrates For Hypoglycemia ) 15 - 30 gm PO UD PRN PRN Reason: Hypoglycemia Protocol Stop: 06/10/21 08:17 Morphine Sulfate (Morphine Sulfate 2 Mg/Ml Carp) 2 mg IV Q3H PRN PRN Reason: Pain Stop: 05/25/21 08:17 Simvastatin (Simvastatin 20 Mg Tab) 20 mg PO HS CHARLINE Stop: 06/10/21 20:59 Last Admin: 05/11/21 20:31 Dose: 20 mg Documented by: Tramadol HCl (Tramadol Hcl 50 Mg Tablet) 25 - 50 mg PO Q4H PRN PRN Reason: Pain Stop: 06/10/21 08:17
--- NOTE | 2021-05-12 08:38 | History & Physical Report ---
Date of Service May 12, 2021 Assessment & Plan Admission and Anticipated Discharge Date Admission Date: May 11, 2021 History of Present Illness Chief Complaint: Hematemesis Primary Care Provider: Tarik Church MD 65 yo fm with a history of breast cancer admitted 2 days ago with reported hematemesis. Hgb essentially stable. INR was 5 on admission now reversed to 1.2. No further hematemesis or melena since admission. She is feeling fine otherwise. No acute complaints. Allergies Allergy/AdvReac Type Severity Reaction Status Date / Time No Known Allergies Allergy Verified 05/11/21 02:27 Home Medications Medication Instructions Recorded Confirmed Type furosemide 20 mg tablet 20 mg PO DAILY 07/30/19 05/11/21 History anastrozole 1 mg tablet 1 mg PO DAILY 05/11/21 05/11/21 History digoxin 125 mcg (0.125 mg) tablet 0.125 mcg PO DAILY 05/11/21 05/11/21 History lisinopril 2.5 mg tablet 2.5 mg PO DAILY 05/11/21 05/11/21 History metoprolol succinate 100 mg 100 mg PO DAILY 05/11/21 05/11/21 History tablet,extended release 24 hr metoprolol succinate 25 mg 25 mg PO DAILY 05/11/21 05/11/21 History tablet,extended release 24 hr simvastatin 20 mg tablet 20 mg PO HS 05/11/21 05/11/21 History solifenacin 5 mg tablet 5 mg PO DAILY 05/11/21 05/11/21 History spironolactone 25 mg tablet 25 mg PO DAILY 05/11/21 05/11/21 History warfarin 5 mg tablet See Rx Instructions .ROUTE .COMPLEX 05/11/21 05/11/21 History Past Med/Surg History Social History Smoking Status: Never smoker Hx Alcohol Use: No Hx Substance Use: No Preferred Language: Georgian Communication Ability: Effective Business Advisor Required: No Beliefs That Will Affect Care: None Current Living Situation: Spouse Feels Safe at Home: Yes Safety Concerns: Feels Safe At This Time Review of Systems All systems reviewed & are unremarkable except as noted in Subjective Physical Exam Physical Exam: Obese female in nad Respiratory: Normal respirations, no use of accessory muscles of respiration Gastrointestinal (Abdomen): normal bowel sounds, soft, nontender, no hepatosplenomegaly Skin: no rashes, warm and dry Neurologic: PERRL, EOMI, accommodation nl, no face palsy, no dysarthria Results & Data ([facility]) Vital Signs (Past 12 Hours) Vital Signs Temp Pulse Pulse Resp BP BP Pulse Ox 05/12/21 08:05 36.9 C 88 114/67 95 05/12/21 03:00 36.9 C 94 H 20 113/65 97 05/12/21 01:21 98 H 05/11/21 23:30 37 C 96 H 20 102/68 97 05/11/21 23:17 37.2 C 98 H 16 102/65 05/11/21 22:30 37.1 C 95 H 16 103/65 95 05/11/21 22:00 37.2 C 96 H 18 118/75 98 05/11/21 21:45 37.2 C 94 H 16 109/67 97 05/11/21 21:28 37.0 C 97 H 16 117/70 98 Code Status & VTE Plan VTE Prophylaxis Plan VTE Prophylaxis will be ordered: Yes Supervising Physician Co-Signing Physician Notes EGD for evaluation of reported hematemesis that has now resolved.
--- NOTE | 2021-05-12 09:04 | Anesthesiology Consultation ---
Date of Service May 12, 2021 Assessment & Plan (1) Encounter for pre-operative examination: (2) Cardiomyopathy: Chart Review Chart Review: Acceptable Risk for Surgery History Surgery Operation Date: 05/11/21 16:30 Proposed Procedures p Esophagogastroduodenoscopy Dr. Nikolas Connor MD Operation Date: 05/12/21 16:30 Proposed Procedures p Esophagogastroduodenoscopy Dr. Nikolas Connor MD Height/Weight Height: 5 ft 5 in Weight: 91 kg Allergies Allergy/AdvReac Type Severity Reaction Status Date / Time No Known Allergies Allergy Verified 05/11/21 02:27 Medications Home Medications Medication Instructions Recorded Confirmed Last Taken furosemide 20 mg tablet 20 mg PO DAILY 07/30/19 05/11/21 05/10/21 anastrozole 1 mg tablet 1 mg PO DAILY 05/11/21 05/11/21 05/10/21 digoxin 125 mcg (0.125 mg) tablet 0.125 mcg PO DAILY 05/11/21 05/11/21 05/10/21 lisinopril 2.5 mg tablet 2.5 mg PO DAILY 05/11/21 05/11/21 05/10/21 metoprolol succinate 100 mg 100 mg PO DAILY 05/11/21 05/11/21 05/10/21 tablet,extended release 24 hr metoprolol succinate 25 mg 25 mg PO DAILY 05/11/21 05/11/21 05/10/21 tablet,extended release 24 hr simvastatin 20 mg tablet 20 mg PO HS 05/11/21 05/11/21 05/10/21 solifenacin 5 mg tablet 5 mg PO DAILY 05/11/21 05/11/21 05/10/21 spironolactone 25 mg tablet 25 mg PO DAILY 05/11/21 05/11/21 05/10/21 warfarin 5 mg tablet See Rx Instructions .ROUTE .COMPLEX 05/11/21 05/11/21 05/10/21 Active Medications Generic Name Dose Route Start Last Admin Trade Name Freq PRN Reason Stop Dose Admin Anastrozole 1 mg 05/11/21 09:00 05/11/21 10:02 Anastrozole 1 Mg Tab PO 06/10/21 08:59 1 mg DAILY CHARLINE Administration Digoxin 0.125 mg 05/11/21 16:00 05/11/21 16:49 Digoxin 0.125 Mg Tab PO 06/10/21 15:59 0.125 mg DAILY@1600 CHARLINE Administration Pantoprazole Sodium 40 mg/ 100 mls @ 20 mls/hr 05/11/21 02:45 05/12/21 08:25 Dextrose IV 06/10/21 02:44 0 mg/hr Q5H CHARLINE 0 mls/hr Infusion 8 MG/HR Lactated Ringer's 1,000 mls @ 100 mls/hr 05/11/21 10:30 05/12/21 08:25 Lr IV 06/10/21 10:29 0 mls/hr .Q10H CHARLINE Infusion Insulin Aspart 0 units 05/11/21 08:18 05/11/21 20:26 Insulin Aspart 100 Units/Ml 3 Ml Pen SC 06/10/21 08:17 Not Given ACHS CHARLINE Miscellaneous 1 ea 05/11/21 16:00 05/12/21 00:07 Solifenacin - Order Awaiting Action N/A 06/10/21 15:59 Not Given QS CHARLINE Simvastatin 20 mg 05/11/21 21:00 05/11/21 20:31 Simvastatin 20 Mg Tab PO 06/10/21 20:59 20 mg HS CHARLINE Administration NPO Date Last Intake of Fluids: 05/18/21 Time Last Intake of Fluids: 23:30 Date Last Intake of Solids: 05/11/21 Time Last Intake of Solids: 23:30 Past Medical History Medical History (Updated 05/12/21 @ 09:13 by Chan Selby MD) Breast CA Cardiomyopathy Non-insulin dependent diabetes mellitus new diagnosis to her Syncope UGIB (upper gastrointestinal bleed) Past Surgical History Surgical History (Updated 05/12/21 @ 09:01 by Chan Selby MD) Hx of partial mastectomy Social History Smoking Status: Never smoker Hx Alcohol Use: No Hx Substance Use: No Physical Exam Vital Signs Last Vital Signs Temp 36.8 C 05/12/21 08:32 Pulse 103 H 05/12/21 08:32 Resp 16 05/12/21 08:32 BP 137/78 05/12/21 08:32 Pulse Ox 97 05/12/21 08:32 Testing Laboratory Results 05/12/21 07:44 05/12/21 06:01 PT 11.6 Seconds (9.0-12.0) 05/12/21 06:01 INR 1.2 (0.9-1.1) H 05/12/21 06:01 Hemoglobin A1c 7.1 % (4.5-5.6) H 05/11/21 02:15 Urine Color Yellow 05/11/21 22:10 Urine Appearance Clear (Clear) 05/11/21 22:10 Urine pH 6.0 (4.5-7.5) 05/11/21 22:10 Ur Specific [place] 1.013 (1.000-1.030) 05/11/21 22:10 Urine Protein Negative (Negative) 05/11/21 22:10 Urine Glucose (UA) Negative (Negative) 05/11/21 22:10 Urine Ketones Negative (Negative) 05/11/21 22:10 Urine Nitrite Negative (Negative) 05/11/21 22:10 Ur Leukocyte Esterase Negative (Negative) 05/11/21 22:10 Blood Type B Positive 05/11/21 02:24 Antibody Screen NEGATIVE 05/11/21 02:24 05/11/21 04:48 Aerobic Blood Culture - Preliminary Blood No growth in Aerobic bottle after 24 hours. 05/11/21 03:54 Aerobic Blood Culture - Preliminary Blood No growth in Aerobic bottle after 24 hours. Anaerobic Blood Culture - Preliminary No growth in Anaerobic bottle after 24 hours. 05/12/21 05/11/21 07:17 23:59 POC Glucose 125 H 106 H Electrocardiogram Date: 05/11/21 ventricular paced at 102 Chest X-Ray Date: 05/11/21 Findings: + NAD Echocardiogram 2020 echo showed improvement from her prior low of 25% in 2014 to 55% after having had her biventricular pacemaker
[2021-05-12] MEDS ORDERED: PROPOFOL IV EMULSION 10 MG/ML 20 ML VIAL IV ONE (09:07)
[2021-05-12] MEDS ORDERED: LIDOCAINE 2% 2 ML VIAL/AMP(20MG/ML) INFIL ONE (09:07)
--- NOTE | 2021-05-12 09:30 | GI REPORT ---
Patient Name: Brianne Childs Procedure Date: 05/12/2021 9:04 AM Date of : 1955 Admit Type: Inpatient Age: 65 Gender: Female Attending MD: Monica Connor M.d. Procedure: Upper GI endoscopy Providers: Monica Connor M.d. Referring MD: Alberto Craft Md Indications: Hematemesis Medicines: Propofol per Anesthesia, See anesthesia record Complications: No immediate complications. Estimated Blood Loss: Estimated blood loss: none. Procedure: Pre-Anesthesia Assessment: - Patient identification and proposed procedure were verified prior to the procedure by the physician, the nurse and the anesthesiologist. The procedure was verified in the pre-procedure area. - Prior to the procedure, a History and Physical was performed, and patient medications, allergies and sensitivities were reviewed. The patient's tolerance of previous anesthesia was reviewed. - The risks and benefits of the procedure and the sedation options and risks were discussed with the patient. All questions were answered and informed consent was obtained. After obtaining informed consent, the endoscope was passed under direct vision. Throughout the procedure, the patient's blood pressure, pulse, and oxygen saturations were monitored continuously. The Endoscope was introduced through the mouth and advanced to the second part of duodenum. The upper GI endoscopy was accomplished without difficulty. The patient tolerated the procedure well. Findings: The examined esophagus appeared normal. The Z-line appeared regular. A small hiatal hernia was present. Localized mildly erythematous mucosa without bleeding was found in the gastric antrum. Biopsies were taken with a cold forceps for Helicobacter pylori testing. The pathology specimen was placed into Bottle A. Verification of patient identification for the specimen was done by the physician and nurse using the patient's name and medical record number. The examined stomach otherwise appeared normal. The duodenal bulb and second portion of the duodenum appeared normal. Impression: - Normal esophagus. - Z-line regular. - Erythematous mucosa in the antrum. Biopsied. - Normal stomach. - Normal duodenal bulb and second portion of the duodenum. Recommendation: - Await pathology results. - Change PPI to IV BID. - Advance diet as tolerated. - She will be informed of biopsy results. Sekou Crespo M.d. 05/12/2021 9:29:36 AM This report has been signed electronically. Note Initiated On: 05/12/2021 9:04 AM Number of Addenda: 0 I attest to the content of the Intraoperative Record and orders documented therein, exceptions below {[id number]}
--- NOTE | 2021-05-12 09:30 | Communication Note ---
Date of Service: May 12, 2021 EGD without evidence of overt gi bleeding. No ulcer, gastritis. Suspect her bleeding may have been from gastritis with a supratherapeutic INR. IV PPI BID, advance diet as tolerated, change to oral BID PPI for 6-8 weeks, carafate 1 gram qid.
--- NOTE | 2021-05-12 10:15 | Anesthesiology Progress Note ---
Date of Service May 12, 2021 Anesthesia Post Procedure Vital Signs Vital Signs: Temp Pulse Pulse Pulse Resp BP BP 05/12/21 10:01 85 20 141/85 H 05/12/21 09:46 92 H 20 140/84 05/12/21 09:32 110 H 20 126/77 05/12/21 08:32 36.8 C 103 H 16 137/78 05/12/21 08:05 36.9 C 88 114/67 05/12/21 03:00 36.9 C 94 H 20 113/65 05/12/21 01:21 98 H 05/11/21 23:30 37 C 96 H 20 102/68 05/11/21 23:17 37.2 C 98 H 16 102/65 05/11/21 22:30 37.1 C 95 H 16 103/65 05/11/21 22:00 37.2 C 96 H 18 118/75 05/11/21 21:45 37.2 C 94 H 16 109/67 05/11/21 21:28 37.0 C 97 H 16 117/70 05/11/21 19:00 37.1 C 114 H 20 05/11/21 16:49 108 H 05/11/21 16:19 36.8 C 110 H 16 05/11/21 16:00 102 H 05/11/21 11:29 37.0 C 107 H 16 BP Pulse Ox 05/12/21 10:01 98 05/12/21 09:46 97 05/12/21 09:32 97 05/12/21 08:32 97 05/12/21 08:05 95 05/12/21 03:00 97 05/12/21 01:21 05/11/21 23:30 97 05/11/21 23:17 05/11/21 22:30 95 05/11/21 22:00 98 05/11/21 21:45 97 05/11/21 21:28 98 05/11/21 19:00 127/67 92 05/11/21 16:49 05/11/21 16:19 108/71 95 05/11/21 16:00 05/11/21 11:29 112/66 98 Transfer of Care Handoff Completed per policy Notes Mental Status: alert / awake / arousable Patient Amnestic to Procedure: Yes Nausea / Vomiting: adequately controlled Pain: adequately controlled Airway Patency, RR, SpO2: stable & adequate BP & HR: stable & adequate Hydration State: stable & adequate Anesthetic Complications: no major complications apparent
[2021-05-12] MEDS: ANASTROZOLE 1 MG TAB PO SCH (11:08)
[2021-05-12] MEDS: INSULIN ASPART 100 UNITS/ML 3 ML PEN SC SCH ×4 (12:27→21:52)
[2021-05-12] MEDS: INSULIN GLARGINE SOLOSTAR 100 UNITS/ML 3 ML PEN SC SCH (12:39)
[2021-05-12] MEDS: SUCRALFATE 1 GM/10 ML UDC PO SCH ×3 (13:45→21:52)
[2021-05-12] MEDS: DIGOXIN 0.125 MG TAB PO SCH (17:07)
[2021-05-12 17:40] LABS: Hematocrit (blood only) 26.9 % (37-47)
[2021-05-12] MEDS: SIMVASTATIN 20 MG TAB PO SCH (21:52)
[2021-05-13] MEDS: PANTOprazole 40 MG in DEXTROSE 5% 100 ML IV SCH ×6 (00:36→20:36)
--- NOTE | 2021-05-13 06:45 | Hospitalist Progress Note ---
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 Vitamin K given on admission to reverse INR Hold Coumadin IV PPI Serial H&H, transfuse PRBC to obtain hemoglobin greater than 8 Pt now received 3 units of pRBC total as of 05/12 IVF stopped GI consult Re: GI bleed S/ P EGD (05/12/2021) Impression: - Normal esophagus. - Z-line regular. - Erythematous mucosa in the antrum. Biopsied. - Normal stomach. - Normal duodenal bulb and second portion of the duodenum. Recommendation: - Await pathology results. - Change PPI to IV BID. - Advance diet as tolerated. - She will be informed of biopsy results. Advance diet to clear liquids, ordered Carafate in addition to PPI Continue to closely monitor Current Hgb 8.2 (05/13/21) Chronic diastolic heart failure (EF 55%, TTE 2019), patient on the dry side on admission Chronic left bundle branch block Hypertension, BP stable although on the lower side on admission Appropriate to hold antihypertensives for now until hemodynamics stable. Hyperlipidemia on statin Rx DM type 2, Hyperglycemia on admission - outpatient hemoglobin A1c of 6.18 August 2020 (patient unaware) Current hemoglobin A1c 7.1%, DM education Basal insulin adjusted for n.p.o. status, ISS BG goal 110-1 40 Right breast cancer status post surgery/radiation on anastrozole, in remission DVT prophylaxis. SCDs Full code Patient's - Mr. Joshua Childs, contact #[phone]. Admission and Anticipated Discharge Date Admission Date: May 11, 2021 Subjective Patient seen in follow-up of hematemesis, acute blood loss anemia S/p EGD yesterday, showed gastritis Received total of 3 units of pRBC Hgb this AM 9.2 No stools after EGD Tolerating clear liquid diet, no abdominal pain or emesis Currently laying in bed in no acute distress No fevers, chills, chest pain, shortness of breath Overall pt feels better Review of Systems Review of Systems: All systems reviewed & are unremarkable except as noted in Subjective Physical Exam Physical Exam: GENERAL: obese F in NAD HEENT: NC/AT, EOMI, PERRL NECK : Supple, short neck, no tenderness CHEST : CTA, no tenderness HEART : RRR, no obvious murmurs ABDOMEN: soft, some distention, nontender EXTREMITIES : Minimal LE swelling, no LE tenderness, moves extremities SKIN: Pallor, warm NEUROLOGIC : Coherent, no facial asymmetry, speech fluent, moves extremities Results & Data Results & Data ([facility]) Vital Signs (Past 12 Hours) Vital Signs Temp Pulse Pulse Resp BP Pulse Ox 05/13/21 04:00 36.7 C 85 18 138/82 97 05/13/21 00:00 83 05/12/21 23:00 36.7 C 90 18 117/75 98 05/12/21 19:00 36.9 C 93 H 18 120/71 97 Laboratory Results 05/13/21 05/13/21 05/13/21 Range/Units 07:50 07:17 07:17 WBC 6.45 (4.8-10.8) K/uL RBC 2.96 L (4.2-5.4) M/uL Hgb 8.2 L (12.0-16.0) g/dL Hct 25.2 L (37-47) % MCV 85.1 (80-100) fL MCH 27.7 (25-34) pg MCHC 32.5 (32-36) g/dL RDW Std Deviation 45.7 (36.4-46.3) fL RDW Coeff of [place] 14.6 H (11.5-14.5) % Plt Count 177 (130-400) K/uL MPV 9.7 (7.4-10.4) fL Absolute Nucleated RBC 0.04 H (0-0) K/uL Nucleated RBC % (auto) 0.6 % Sodium 141 (136-145) mmol/L Potassium 3.6 (3.5-5.1) mmol/L Chloride 110 H (98-107) mmol/L Carbon Dioxide 25 (21-32) mmol/L Anion Gap 6.0 (3-11) BUN 12 (7-18) mg/dl Creatinine 0.68 (0.6-1.2) mg/dl Est Cr Clr Drug Dosing 93.7 ml/min Est GFR ( Amer) 107.1 ml/min Est GFR (Non-Af Amer) 92.4 ml/min BUN/Creatinine Ratio 17.3 (10-20) Glucose 108 H (70-99) mg/dl POC Glucose 126 H (70-99) mg/dl Calcium 9.0 (8.5-10.1) mg/dl Phosphorus 4.0 D (2.5-4.9) mg/dl Magnesium 2.2 (1.8-2.4) mg/dl Crossmatch 05/12/21 05/12/21 05/12/21 Range/Units 20:27 17:04 16:47 WBC (4.8-10.8) K/uL RBC (4.2-5.4) M/uL Hgb 9.0 L (12.0-16.0) g/dL Hct 26.9 L (37-47) % MCV (80-100) fL MCH (25-34) pg MCHC (32-36) g/dL RDW Std Deviation (36.4-46.3) fL RDW Coeff of [place] (11.5-14.5) % Plt Count (130-400) K/uL MPV (7.4-10.4) fL Absolute Nucleated RBC (0-0) K/uL Nucleated RBC % (auto) % Sodium (136-145) mmol/L Potassium (3.5-5.1) mmol/L Chloride (98-107) mmol/L Carbon Dioxide (21-32) mmol/L Anion Gap (3-11) BUN (7-18) mg/dl Creatinine (0.6-1.2) mg/dl Est Cr Clr Drug Dosing ml/min Est GFR ( Amer) ml/min Est GFR (Non-Af Amer) ml/min BUN/Creatinine Ratio (10-20) Glucose (70-99) mg/dl POC Glucose 129 H 95 (70-99) mg/dl Calcium (8.5-10.1) mg/dl Phosphorus (2.5-4.9) mg/dl Magnesium (1.8-2.4) mg/dl Crossmatch 05/11/21 Range/Units 02:24 WBC (4.8-10.8) K/uL RBC (4.2-5.4) M/uL Hgb (12.0-16.0) g/dL Hct (37-47) % MCV (80-100) fL MCH (25-34) pg MCHC (32-36) g/dL RDW Std Deviation (36.4-46.3) fL RDW Coeff of [place] (11.5-14.5) % Plt Count (130-400) K/uL MPV (7.4-10.4) fL Absolute Nucleated RBC (0-0) K/uL Nucleated RBC % (auto) % Sodium (136-145) mmol/L Potassium (3.5-5.1) mmol/L Chloride (98-107) mmol/L Carbon Dioxide (21-32) mmol/L Anion Gap (3-11) BUN (7-18) mg/dl Creatinine (0.6-1.2) mg/dl Est Cr Clr Drug Dosing ml/min Est GFR ( Amer) ml/min Est GFR (Non-Af Amer) ml/min BUN/Creatinine Ratio (10-20) Glucose (70-99) mg/dl POC Glucose (70-99) mg/dl Calcium (8.5-10.1) mg/dl Phosphorus (2.5-4.9) mg/dl Magnesium (1.8-2.4) mg/dl Crossmatch See Detail Medications Administered Current Inpatient Medications Acetaminophen (Acetaminophen 325 Mg Tab) 650 mg PO Q4H PRN PRN Reason: Pain or Fever Stop: 06/10/21 08:17 Anastrozole (Anastrozole 1 Mg Tab) 1 mg PO DAILY CHARLINE Stop: 06/10/21 08:59 Last Admin: 05/12/21 11:08 Dose: 1 mg Documented by: Dextrose (Dextrose 50% 50 Ml Syringe) 25 - 50 ml IV UD PRN; Protocol PRN Reason: Hypoglycemia Protocol Stop: 06/10/21 08:17 Digoxin (Digoxin 0.125 Mg Tab) 0.125 mg PO DAILY@1600 [facility] Stop: 06/10/21 15:59 Last Admin: 05/12/21 17:07 Dose: 0.125 mg Documented by: Glucagon (Glucagon For Inj 1 Mg Vial) 1 mg SQ UD PRN; Protocol PRN Reason: Hypoglycemia Protocol Stop: 06/10/21 08:17 Glucose (Glucose 10 Tabs/Tube) 4 - 8 tabs PO UD PRN; Protocol PRN Reason: Hypoglycemia Protocol Stop: 06/10/21 08:17 Glucose (Glucose 40% Gel 15 Gm Tube) 15 - 30 gm PO UD PRN; Protocol PRN Reason: Hypoglycemia Protocol Stop: 06/10/21 08:17 Pantoprazole Sodium 40 mg/ (Dextrose) 100 mls @ 20 mls/hr IV Q5H [facility] Stop: 06/10/21 02:44 Last Admin: 05/13/21 04:56 Dose: 8 mg/hr, 20 mls/hr Documented by: Promethazine HCl 12.5 mg/ (Sodium Chloride) 50.5 mls @ 202 mls/hr IV Q6H PRN PRN Reason: Nausea And Vomiting Stop: 06/10/21 08:17 Insulin Aspart (Insulin Aspart 100 Units/Ml 3 Ml Pen) 0 units SC ACHS [facility] Stop: 06/10/21 08:17 Last Admin: 05/12/21 21:52 Dose: Not Given Documented by: Insulin Glargine (Insulin Glargine Solostar 100 Units/Ml 3 Ml Pen) 5 units SC DAILY [facility] Stop: 06/11/21 08:59 Last Admin: 05/12/21 12:39 Dose: 5 units Documented by: Miscellaneous (Carbohydrates For Hypoglycemia ) 15 - 30 gm PO UD PRN PRN Reason: Hypoglycemia Protocol Stop: 06/10/21 08:17 Morphine Sulfate (Morphine Sulfate 2 Mg/Ml [place]) 2 mg IV Q3H PRN PRN Reason: Pain Stop: 05/25/21 08:17 Simvastatin (Simvastatin 20 Mg Tab) 20 mg PO HS [facility] Stop: 06/10/21 20:59 Last Admin: 05/12/21 21:52 Dose: 20 mg Documented by: Solifenacin (Solifenacin Succinate 5 Mg) 1 ea PO QAM [facility] Stop: 06/12/21 08:59 Sucralfate (Sucralfate 1 Gm/10 Ml Udc) 1 gm PO QID@0800,1200,1800,2200 [facility] Stop: 06/11/21 11:59 Last Admin: 05/12/21 21:52 Dose: 1 gm Documented by: Tramadol HCl (Tramadol Hcl 50 Mg Tablet) 25 - 50 mg PO Q4H PRN PRN Reason: Pain Stop: 06/10/21 08:17
[2021-05-13 07:51] LABS: Hematocrit (blood only) 25.2 % (37-47); Hemoglobin 8.2 g/dL (12.0-16.0); Mean Corpuscular Hemoglobin 27.7 pg (25-34); Mean Corpuscular Hgb Conc 32.5 g/dL (32-36); Mean Corpuscular Volume 85.1 fL (80-100); Mean Platelet Volume 9.7 fL (7.4-10.4); Nucleated RBC # (auto) 0.04 K/uL (0-0); Nucleated RBC % (auto) 0.6 %; Platelet Count 177 K/uL (130-400); RDW Coefficient of Variation 14.6 % (11.5-14.5); RDW Standard Deviation 45.7 fL (36.4-46.3); Red Blood Count 2.96 M/uL (4.2-5.4); White Blood Count 6.45 K/uL (4.8-10.8)
[2021-05-13] MEDS: SUCRALFATE 1 GM/10 ML UDC PO SCH ×4 (08:13→22:03)
[2021-05-13] MEDS: SOLIFENACIN SUCCINATE 5 MG PO SCH (08:14)
[2021-05-13] MEDS: ANASTROZOLE 1 MG TAB PO SCH (08:14)
[2021-05-13] MEDS: INSULIN ASPART 100 UNITS/ML 3 ML PEN SC SCH ×4 (08:16→20:56)
[2021-05-13] MEDS: INSULIN GLARGINE SOLOSTAR 100 UNITS/ML 3 ML PEN SC SCH (08:19)
[2021-05-13 08:29] LABS: BUN Creatinine Ratio 17.3 (10-20); Creatinine Clr Calc Pharmacy 93.7 ml/min; Est GFR (African American) 107.1 ml/min; Est GFR (Non-African American) 92.4 ml/min; Magnesium 2.2 mg/dl (1.8-2.4); Potassium 3.6 mmol/L (3.5-5.1)
[2021-05-13] MEDS ORDERED: POTASSIUM CHLORIDE CRTAB 20 MEQ TABCR PO STA (11:47)
[2021-05-13 12:22] LABS: Prothrombin Time 10.5 Seconds (9.0-12.0)
[2021-05-13] MEDS: MULTIVITAMIN TAB PO SCH (13:14)
[2021-05-13] MEDS: DIGOXIN 0.125 MG TAB PO SCH (16:59)
[2021-05-13 18:03] LABS: Hematocrit (blood only) 25.3 % (37-47); Hemoglobin 8.3 g/dL (12.0-16.0)
[2021-05-13] MEDS: SIMVASTATIN 20 MG TAB PO SCH (20:37)
[2021-05-14] MEDS: PANTOprazole 40 MG in DEXTROSE 5% 100 ML IV SCH ×3 (01:10→11:12)
[2021-05-14 06:32] LABS: Hematocrit (blood only) 25.4 % (37-47); Hemoglobin 8.4 g/dL (12.0-16.0); Mean Corpuscular Hgb Conc 33.1 g/dL (32-36); Mean Corpuscular Volume 84.7 fL (80-100); Mean Platelet Volume 9.6 fL (7.4-10.4); Platelet Count 196 K/uL (130-400); RDW Coefficient of Variation 14.7 % (11.5-14.5); RDW Standard Deviation 44.6 fL (36.4-46.3); White Blood Count 6.82 K/uL (4.8-10.8)
[2021-05-14 06:36] LABS: Prothrombin Time 10.2 Seconds (9.0-12.0)
[2021-05-14 07:01] LABS: BUN Creatinine Ratio 10.3 (10-20); Calcium 8.8 mg/dl (8.5-10.1); Creatinine Clr Calc Pharmacy 85.4 ml/min; Est GFR (African American) 99.2 ml/min; Est GFR (Non-African American) 85.6 ml/min; Potassium 3.6 mmol/L (3.5-5.1)
[2021-05-14] MEDS: MULTIVITAMIN TAB PO SCH (08:36)
[2021-05-14] MEDS: SUCRALFATE 1 GM/10 ML UDC PO SCH ×4 (08:36→22:05)
[2021-05-14] MEDS: SOLIFENACIN SUCCINATE 5 MG PO SCH (08:37)
[2021-05-14] MEDS: ANASTROZOLE 1 MG TAB PO SCH (08:37)
[2021-05-14] MEDS: INSULIN ASPART 100 UNITS/ML 3 ML PEN SC SCH ×4 (08:39→21:09)
[2021-05-14] MEDS: INSULIN GLARGINE SOLOSTAR 100 UNITS/ML 3 ML PEN SC SCH (08:39)
--- NOTE | 2021-05-14 08:47 | Hospitalist Progress Note ---
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 pylori is negative Patient with hemodynamic instability. Vitamin K given on admission to reverse INR Hold Coumadin IV PPI Serial H&H, transfuse PRBC to obtain hemoglobin greater than 8 Pt now received 3 units of pRBC total as of 05/12 IVF stopped GI consult Re: GI bleed S/ P EGD (05/12/2021) Impression: - Normal esophagus. - Z-line regular. - Erythematous mucosa in the antrum. Biopsied. - Normal stomach. - Normal duodenal bulb and second portion of the duodenum. Recommendation: - Await pathology results. - H.pylori negative - Change PPI to IV BID. - Advance diet as tolerated. - She will be informed of biopsy results. Advanced diet to clear liquids, ordered Carafate in addition to PPI Continue to closely monitor Hgb 8.2 (05/13/21) Tolerating clear with diet, current hemoglobin 8.4, stable. Will advance to full liquid diet today. Chronic diastolic heart failure (EF 55%, TTE 2019), patient on the dry side on admission Chronic left bundle branch block Hypertension, BP stable although on the lower side on admission Appropriate to hold antihypertensives for now until hemodynamics stable. 05/14 BP much improved- will restart beta-domingo and lisinopril Hgb stable - will restart warfarin at lower dose - 3 mg daily Hyperlipidemia on statin Rx DM type 2, Hyperglycemia on admission - outpatient hemoglobin A1c of 6.18 August 2020 (patient unaware) Current hemoglobin A1c 7.1%, DM education Cont. Basal insulin. ISS BG goal 110-140 Right breast cancer status post surgery/radiation on anastrozole, in remission DVT prophylaxis. SCDs Full code Patient's - Mr. Joshua Childs, contact #[phone]. Admission and Anticipated Discharge Date Admission Date: May 11, 2021 Subjective Patient seen in follow-up of hematemesis, acute blood loss anemia S/p EGD yesterday, showed gastritis, H. pylori negative Received total of 3 units of pRBC Hgb 8.4, stable from yesterday No stools after EGD yet Tolerating clear liquid diet, no abdominal pain or emesis - advanced to full liquid today Currently sitting up in bed in no acute distress No fevers, chills, chest pain, shortness of breath Overall pt feels much better Review of Systems Review of Systems: All systems reviewed & are unremarkable except as noted in Subjective Physical Exam Physical Exam: GENERAL: obese F in NAD HEENT: NC/AT, EOMI, PERRL NECK : Supple, short neck, no tenderness CHEST : CTA, no tenderness HEART : RRR, no obvious murmurs ABDOMEN: soft, + bowel sounds, no distention, nontender EXTREMITIES : Minimal LE swelling, no LE tenderness, moves extremities SKIN: warm, dry (pallor resolved) NEUROLOGIC : Coherent, no facial asymmetry, speech fluent, moves extremities Results & Data Results & Data ([facility]) Vital Signs (Past 12 Hours) Vital Signs Temp Pulse Pulse Resp BP Pulse Ox 05/14/21 07:30 66 05/14/21 07:26 36.9 C 84 16 145/85 H 95 05/14/21 03:35 36.9 C 77 20 118/71 96 05/13/21 23:10 81 05/13/21 23:00 36.9 C 91 H 20 118/75 95 Laboratory Results 05/14/21 05/14/21 05/14/21 Range/Units 07:54 06:06 06:06 WBC 6.82 (4.8-10.8) K/uL RBC 3.00 L (4.2-5.4) M/uL Hgb 8.4 L (12.0-16.0) g/dL Hct 25.4 L (37-47) % MCV 84.7 (80-100) fL MCH 28.0 (25-34) pg MCHC 33.1 (32-36) g/dL RDW Std Deviation 44.6 (36.4-46.3) fL RDW Coeff of Malka 14.7 H (11.5-14.5) % Plt Count 196 (130-400) K/uL MPV 9.6 (7.4-10.4) fL PT (9.0-12.0) Seconds INR (0.9-1.1) Sodium 141 (136-145) mmol/L Potassium 3.6 (3.5-5.1) mmol/L Chloride 110 H (98-107) mmol/L Carbon Dioxide 27 (21-32) mmol/L Anion Gap 4.0 (3-11) BUN 8 (7-18) mg/dl Creatinine 0.74 (0.6-1.2) mg/dl Est Cr Clr Drug Dosing 85.4 ml/min Est GFR ( Amer) 99.2 ml/min Est GFR (Non-Af Amer) 85.6 ml/min BUN/Creatinine Ratio 10.3 (10-20) Glucose 109 H (70-99) mg/dl POC Glucose 130 H (70-99) mg/dl Calcium 8.8 (8.5-10.1) mg/dl 05/14/21 05/13/21 05/13/21 Range/Units 06:06 20:39 17:56 WBC (4.8-10.8) K/uL RBC (4.2-5.4) M/uL Hgb 8.3 L (12.0-16.0) g/dL Hct 25.3 L (37-47) % MCV (80-100) fL MCH (25-34) pg MCHC (32-36) g/dL RDW Std Deviation (36.4-46.3) fL RDW Coeff of Malka (11.5-14.5) % Plt Count (130-400) K/uL MPV (7.4-10.4) fL PT 10.2 (9.0-12.0) Seconds INR 1.0 (0.9-1.1) Sodium (136-145) mmol/L Potassium (3.5-5.1) mmol/L Chloride (98-107) mmol/L Carbon Dioxide (21-32) mmol/L Anion Gap (3-11) BUN (7-18) mg/dl Creatinine (0.6-1.2) mg/dl Est Cr Clr Drug Dosing ml/min Est GFR ( Amer) ml/min Est GFR (Non-Af Amer) ml/min BUN/Creatinine Ratio (10-20) Glucose (70-99) mg/dl POC Glucose 98 (70-99) mg/dl Calcium (8.5-10.1) mg/dl 05/13/21 05/13/21 05/13/21 Range/Units 16:47 12:01 11:57 WBC (4.8-10.8) K/uL RBC (4.2-5.4) M/uL Hgb (12.0-16.0) g/dL Hct (37-47) % MCV (80-100) fL MCH (25-34) pg MCHC (32-36) g/dL RDW Std Deviation (36.4-46.3) fL RDW Coeff of Malka (11.5-14.5) % Plt Count (130-400) K/uL MPV (7.4-10.4) fL PT 10.5 (9.0-12.0) Seconds INR 1.0 (0.9-1.1) Sodium (136-145) mmol/L Potassium (3.5-5.1) mmol/L Chloride (98-107) mmol/L Carbon Dioxide (21-32) mmol/L Anion Gap (3-11) BUN (7-18) mg/dl Creatinine (0.6-1.2) mg/dl Est Cr Clr Drug Dosing ml/min Est GFR ( Amer) ml/min Est GFR (Non-Af Amer) ml/min BUN/Creatinine Ratio (10-20) Glucose (70-99) mg/dl POC Glucose 110 H 117 H (70-99) mg/dl Calcium (8.5-10.1) mg/dl Medications Administered Current Inpatient Medications Acetaminophen (Acetaminophen 325 Mg Tab) 650 mg PO Q4H PRN PRN Reason: Pain or Fever Stop: 06/10/21 08:17 Anastrozole (Anastrozole 1 Mg Tab) 1 mg PO DAILY [facility] Stop: 06/10/21 08:59 Last Admin: 05/14/21 08:37 Dose: 1 mg Documented by: Dextrose (Dextrose 50% 50 Ml Syringe) 25 - 50 ml IV UD PRN; Protocol PRN Reason: Hypoglycemia Protocol Stop: 06/10/21 08:17 Digoxin (Digoxin 0.125 Mg Tab) 0.125 mg PO DAILY@1600 [facility] Stop: 06/10/21 15:59 Last Admin: 05/13/21 16:59 Dose: 0.125 mg Documented by: Glucagon (Glucagon For Inj 1 Mg Vial) 1 mg SQ UD PRN; Protocol PRN Reason: Hypoglycemia Protocol Stop: 06/10/21 08:17 Glucose (Glucose 10 Tabs/Tube) 4 - 8 tabs PO UD PRN; Protocol PRN Reason: Hypoglycemia Protocol Stop: 06/10/21 08:17 Glucose (Glucose 40% Gel 15 Gm Tube) 15 - 30 gm PO UD PRN; Protocol PRN Reason: Hypoglycemia Protocol Stop: 06/10/21 08:17 Pantoprazole Sodium 40 mg/ (Dextrose) 100 mls @ 20 mls/hr IV Q5H [facility] Stop: 06/10/21 02:44 Last Admin: 05/14/21 05:40 Dose: 8 mg/hr, 20 mls/hr Documented by: Promethazine HCl 12.5 mg/ (Sodium Chloride) 50.5 mls @ 202 mls/hr IV Q6H PRN PRN Reason: Nausea And Vomiting Stop: 06/10/21 08:17 Insulin Aspart (Insulin Aspart 100 Units/Ml 3 Ml Pen) 0 units SC ACHS [facility] Stop: 06/10/21 08:17 Last Admin: 05/14/21 08:39 Dose: 2 units Documented by: Insulin Glargine (Insulin Glargine Solostar 100 Units/Ml 3 Ml Pen) 5 units SC DAILY [facility] Stop: 06/11/21 08:59 Last Admin: 05/14/21 08:39 Dose: 5 units Documented by: Miscellaneous (Carbohydrates For Hypoglycemia ) 15 - 30 gm PO UD PRN PRN Reason: Hypoglycemia Protocol Stop: 06/10/21 08:17 Morphine Sulfate (Morphine Sulfate 2 Mg/Ml Carp) 2 mg IV Q3H PRN PRN Reason: Pain Stop: 05/25/21 08:17 Multivitamins (Multivitamin Tab) 1 tab PO QAM [facility] Stop: 06/12/21 12:29 Last Admin: 05/14/21 08:36 Dose: 1 tab Documented by: Simvastatin (Simvastatin 20 Mg Tab) 20 mg PO HS [facility] Stop: 06/10/21 20:59 Last Admin: 05/13/21 20:37 Dose: 20 mg Documented by: Solifenacin (Solifenacin Succinate 5 Mg) 1 ea PO QAM [facility] Stop: 06/12/21 08:59 Last Admin: 05/14/21 08:37 Dose: 1 ea Documented by: Sucralfate (Sucralfate 1 Gm/10 Ml Udc) 1 gm PO QID@0800,1200,1800,2200 [facility] Stop: 06/11/21 11:59 Last Admin: 05/14/21 08:36 Dose: 1 gm Documented by: Tramadol HCl (Tramadol Hcl 50 Mg Tablet) 25 - 50 mg PO Q4H PRN PRN Reason: Pain Stop: 06/10/21 08:17
[2021-05-14] MEDS ORDERED: WARFARIN SOD 3 MG TAB PO SCH (16:00)
[2021-05-14 16:11] LABS: Hematocrit (blood only) 27.4 % (37-47); Hemoglobin 8.9 g/dL (12.0-16.0)
[2021-05-14] MEDS: lisinopril 2.5 MG TAB PO SCH (16:25)
[2021-05-14] MEDS: METOPROLOL SUCC 50MG EXT REL TAB PO SCH (16:25)
[2021-05-14] MEDS: DIGOXIN 0.125 MG TAB PO SCH (16:26)
[2021-05-14] MEDS: METOPROLOL SUCC 25MG EXT REL TAB PO SCH (16:26)
[2021-05-14] MEDS ORDERED: PANTOprazole 40 MG in DEXTROSE 5% 100 ML IV SCH (21:00)
[2021-05-14] MEDS: PANTOprazole 40 MG in SYRINGE 0 ML IV SCH (21:08)
[2021-05-14] MEDS: SIMVASTATIN 20 MG TAB PO SCH (21:10)
[2021-05-15 06:15] LABS: Hematocrit (blood only) 25.9 % (37-47); Hemoglobin 8.4 g/dL (12.0-16.0)
[2021-05-15 06:30] LABS: Prothrombin Time 10.2 Seconds (9.0-12.0)
[2021-05-15 06:48] LABS: BUN Creatinine Ratio 9.9 (10-20); Calcium 8.9 mg/dl (8.5-10.1); Est GFR (African American) 106.6 ml/min; Magnesium 2.2 mg/dl (1.8-2.4); Phosphorus 4.1 mg/dl (2.5-4.9); Potassium 3.8 mmol/L (3.5-5.1)
--- NOTE | 2021-05-15 07:05 | Hospitalist Progress Note ---
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 pylori is negative Patient with hemodynamic instability. Vitamin K given on admission to reverse INR Hold Coumadin IV PPI Serial H&H, transfuse PRBC to obtain hemoglobin greater than 8 Pt now received 3 units of pRBC total as of 05/12 IVF stopped GI consult Re: GI bleed S/ P EGD (05/12/2021) Impression: - Normal esophagus. - Z-line regular. - Erythematous mucosa in the antrum. Biopsied. - Normal stomach. - Normal duodenal bulb and second portion of the duodenum. Recommendation: - Await pathology results. - H.pylori negative - Change PPI to IV BID. - Advance diet as tolerated. - She will be informed of biopsy results. Advanced diet to clear liquids, ordered Carafate in addition to PPI Continue to closely monitor Hgb 8.2 (05/13/21) Tolerating clear with diet, current hemoglobin 8.4, stable. Will advance to full liquid diet today. 05/15 -patient is tolerating low fiber diet, feeling well hemoglobin is stable. Restarted warfarin yesterday, INR at this point still subtherapeutic. She will need to follow-up with PCP and anticoagulation clinic. Plan to discharge on lower dose of warfarin, 3 mg daily. She will need to continue pantoprazole and Carafate. Chronic diastolic heart failure (EF 55%, TTE 2019), patient on the dry side on admission - on discharge hold furosemide and spironolactone, follow-up with PCP/cardiology Chronic left bundle branch block Hypertension, BP stable although on the lower side on admission Appropriate to hold antihypertensives for now until hemodynamics stable. 05/14 - BP much improved- restarted beta-domingo and lisinopril Hgb stable - restarted warfarin at lower dose - 3 mg daily Hyperlipidemia on statin Rx DM type 2, Hyperglycemia on admission - outpatient hemoglobin A1c of 6.18 August 2020 (patient unaware) Current hemoglobin A1c 7.1%, DM education - [employer] glucose meter provided/use reviewed. SMBG frequency/targets discussed. Cont. Basal insulin. ISS BG goal 110-140 Right breast cancer status post surgery/radiation on anastrozole, in remission DVT prophylaxis. SCDs Full code Patient's - Mr. Joshua Childs, contact #[phone]. Admission and Anticipated Discharge Date Admission Date: May 11, 2021 Subjective Patient seen in follow-up of hematemesis, acute blood loss anemia S/p EGD showed gastritis, H. pylori negative Received total of 3 units of pRBC Hgb 8.4, stable from yesterday No stools after EGD yet Tolerating low fiber diet Currently sitting up in bed in no acute distress No fevers, chills, chest pain, shortness of breath Overall pt feels well Review of Systems Review of Systems: All systems reviewed & are unremarkable except as noted in Subjective Physical Exam Physical Exam: GENERAL: obese F in NAD HEENT: NC/AT, EOMI, PERRL NECK : Supple, short neck, no tenderness CHEST : CTA, no tenderness HEART : RRR, no obvious murmurs ABDOMEN: soft, + bowel sounds, no distention, nontender EXTREMITIES : Minimal LE swelling, no LE tenderness, moves extremities SKIN: warm, dry (pallor resolved) NEUROLOGIC : Coherent, no facial asymmetry, speech fluent, moves extremities Results & Data Results & Data ([facility]) Vital Signs (Past 12 Hours) Vital Signs Temp Pulse Pulse Resp BP Pulse Ox 05/15/21 03:30 36.7 C 74 20 102/64 93 05/14/21 22:35 36.8 C 71 20 109/64 96 05/14/21 22:28 77 05/14/21 19:30 37.0 C 82 20 127/74 96 Laboratory Results 05/15/21 05/15/21 05/15/21 Range/Units 06:01 06:01 06:01 Hgb 8.4 L (12.0-16.0) g/dL Hct 25.9 L (37-47) % PT 10.2 (9.0-12.0) Seconds INR 1.0 (0.9-1.1) Sodium 142 (136-145) mmol/L Potassium 3.8 (3.5-5.1) mmol/L Chloride 109 H (98-107) mmol/L Carbon Dioxide 27 (21-32) mmol/L Anion Gap 6.0 (3-11) BUN 7 (7-18) mg/dl Creatinine 0.69 (0.6-1.2) mg/dl Est Cr Clr Drug Dosing 91.0 ml/min Est GFR ( Amer) 106.6 ml/min Est GFR (Non-Af Amer) 92.0 ml/min BUN/Creatinine Ratio 9.9 L (10-20) Glucose 105 H (70-99) mg/dl POC Glucose (70-99) mg/dl Calcium 8.9 (8.5-10.1) mg/dl Phosphorus 4.1 (2.5-4.9) mg/dl Magnesium 2.2 (1.8-2.4) mg/dl 05/14/21 05/14/21 05/14/21 Range/Units 20:45 16:33 15:52 Hgb 8.9 L (12.0-16.0) g/dL Hct 27.4 L (37-47) % PT (9.0-12.0) Seconds INR (0.9-1.1) Sodium (136-145) mmol/L Potassium (3.5-5.1) mmol/L Chloride (98-107) mmol/L Carbon Dioxide (21-32) mmol/L Anion Gap (3-11) BUN (7-18) mg/dl Creatinine (0.6-1.2) mg/dl Est Cr Clr Drug Dosing ml/min Est GFR ( Amer) ml/min Est GFR (Non-Af Amer) ml/min BUN/Creatinine Ratio (10-20) Glucose (70-99) mg/dl POC Glucose 98 99 (70-99) mg/dl Calcium (8.5-10.1) mg/dl Phosphorus (2.5-4.9) mg/dl Magnesium (1.8-2.4) mg/dl 05/14/21 05/14/21 Range/Units 11:30 07:54 Hgb (12.0-16.0) g/dL Hct (37-47) % PT (9.0-12.0) Seconds INR (0.9-1.1) Sodium (136-145) mmol/L Potassium (3.5-5.1) mmol/L Chloride (98-107) mmol/L Carbon Dioxide (21-32) mmol/L Anion Gap (3-11) BUN (7-18) mg/dl Creatinine (0.6-1.2) mg/dl Est Cr Clr Drug Dosing ml/min Est GFR ( Amer) ml/min Est GFR (Non-Af Amer) ml/min BUN/Creatinine Ratio (10-20) Glucose (70-99) mg/dl POC Glucose 113 H 130 H (70-99) mg/dl Calcium (8.5-10.1) mg/dl Phosphorus (2.5-4.9) mg/dl Magnesium (1.8-2.4) mg/dl Medications Administered Current Inpatient Medications Acetaminophen (Acetaminophen 325 Mg Tab) 650 mg PO Q4H PRN PRN Reason: Pain or Fever Stop: 06/10/21 08:17 Last Admin: 05/14/21 13:53 Dose: 650 mg Documented by: Anastrozole (Anastrozole 1 Mg Tab) 1 mg PO DAILY [facility] Stop: 06/10/21 08:59 Last Admin: 05/14/21 08:37 Dose: 1 mg Documented by: Dextrose (Dextrose 50% 50 Ml Syringe) 25 - 50 ml IV UD PRN; Protocol PRN Reason: Hypoglycemia Protocol Stop: 06/10/21 08:17 Digoxin (Digoxin 0.125 Mg Tab) 0.125 mg PO DAILY@1600 [facility] Stop: 06/10/21 15:59 Last Admin: 05/14/21 16:26 Dose: 0.125 mg Documented by: Glucagon (Glucagon For Inj 1 Mg Vial) 1 mg SQ UD PRN; Protocol PRN Reason: Hypoglycemia Protocol Stop: 06/10/21 08:17 Glucose (Glucose 10 Tabs/Tube) 4 - 8 tabs PO UD PRN; Protocol PRN Reason: Hypoglycemia Protocol Stop: 06/10/21 08:17 Glucose (Glucose 40% Gel 15 Gm Tube) 15 - 30 gm PO UD PRN; Protocol PRN Reason: Hypoglycemia Protocol Stop: 06/10/21 08:17 Promethazine HCl 12.5 mg/ (Sodium Chloride) 50.5 mls @ 202 mls/hr IV Q6H PRN PRN Reason: Nausea And Vomiting Stop: 06/10/21 08:17 Pantoprazole Sodium 40 mg/ (Syringe) 10 mls @ 5 mls/min IV BID@0900,2100 [facility] Stop: 06/13/21 20:59 Last Admin: 05/14/21 21:08 Dose: 5 mls/min Documented by: Insulin Aspart (Insulin Aspart 100 Units/Ml 3 Ml Pen) 0 units SC ACHS [facility] Stop: 06/10/21 08:17 Last Admin: 05/14/21 21:09 Dose: Not Given Documented by: Insulin Glargine (Insulin Glargine Solostar 100 Units/Ml 3 Ml Pen) 5 units SC DAILY [facility] Stop: 06/11/21 08:59 Last Admin: 05/14/21 08:39 Dose: 5 units Documented by: Lisinopril (Lisinopril 2.5 Mg Tab) 2.5 mg PO DAILY [facility] Stop: 06/13/21 15:59 Last Admin: 05/14/21 16:25 Dose: 2.5 mg Documented by: Metoprolol Succinate (Metoprolol Succ 50mg Ext Rel Tab) 100 mg PO DAILY [facility] Stop: 06/13/21 15:59 Last Admin: 05/14/21 16:25 Dose: 100 mg Documented by: Metoprolol Succinate (Metoprolol Succ 25mg Ext Rel Tab) 25 mg PO DAILY [facility] Stop: 06/13/21 15:59 Last Admin: 05/14/21 16:26 Dose: 25 mg Documented by: Miscellaneous (Carbohydrates For Hypoglycemia ) 15 - 30 gm PO UD PRN PRN Reason: Hypoglycemia Protocol Stop: 06/10/21 08:17 Morphine Sulfate (Morphine Sulfate 2 Mg/Ml Carp) 2 mg IV Q3H PRN PRN Reason: Pain Stop: 05/25/21 08:17 Multivitamins (Multivitamin Tab) 1 tab PO QAM [facility] Stop: 06/12/21 12:29 Last Admin: 05/14/21 08:36 Dose: 1 tab Documented by: Simvastatin (Simvastatin 20 Mg Tab) 20 mg PO HS [facility] Stop: 06/10/21 20:59 Last Admin: 05/14/21 21:10 Dose: 20 mg Documented by: Solifenacin (Solifenacin Succinate 5 Mg) 1 ea PO QAM [facility] Stop: 06/12/21 08:59 Last Admin: 05/14/21 08:37 Dose: 1 ea Documented by: Sucralfate (Sucralfate 1 Gm/10 Ml Udc) 1 gm PO QID@0800,1200,1800,2200 [facility] Stop: 06/11/21 11:59 Last Admin: 05/14/21 22:05 Dose: 1 gm Documented by: Tramadol HCl (Tramadol Hcl 50 Mg Tablet) 25 - 50 mg PO Q4H PRN PRN Reason: Pain Stop: 06/10/21 08:17 Warfarin Sodium (Warfarin Sod 3 Mg Tab) 3 mg PO DAILY@1600 [facility] Stop: 06/13/21 15:59 Last Admin: 05/14/21 16:26 Dose: 3 mg Documented by:
[2021-05-15] MEDS: INSULIN ASPART 100 UNITS/ML 3 ML PEN SC SCH ×2 (08:18→12:07)
[2021-05-15] MEDS: SOLIFENACIN SUCCINATE 5 MG PO SCH (08:55)
[2021-05-15] MEDS: PANTOprazole 40 MG in SYRINGE 0 ML IV SCH (08:56)
[2021-05-15] MEDS: MULTIVITAMIN TAB PO SCH (08:56)
[2021-05-15] MEDS: SUCRALFATE 1 GM/10 ML UDC PO SCH ×2 (08:56→12:17)
[2021-05-15] MEDS: METOPROLOL SUCC 50MG EXT REL TAB PO SCH (08:57)
[2021-05-15] MEDS: METOPROLOL SUCC 25MG EXT REL TAB PO SCH (08:57)
[2021-05-15] MEDS: lisinopril 2.5 MG TAB PO SCH (08:57)
[2021-05-15] MEDS: ANASTROZOLE 1 MG TAB PO SCH (08:58)
[2021-05-15] MEDS: INSULIN GLARGINE SOLOSTAR 100 UNITS/ML 3 ML PEN SC SCH (08:58)
[2021-05-15] MEDS ORDERED: POLYETHYLENE (MIRALAX) 17 GM PACK PO ONE (10:28)
--- NOTE | 2021-05-15 10:42 | Discharge Summary ---
Date of Service May 15, 2021 Admission HPI Per Admitting Provider Chief Complaint: Coffee-ground emesis Primary Care Provider: Tarik Church MD History obtained from patient, family, and records. 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 Patient felt ill after having a taco lunch yesterday. Nausea, bilious emesis later noted to be coffee-ground. No BM yet. No chest pain, no shortness of breath. No actual abdominal pain. No headache symptoms. Patient felt unwell and dizzy. [place] like she was going to pass out. Compliant with home medications. Denies OTC NSAID intake. No prior episodes. No unusual weight loss the last few weeks. At the ER, IV PPI started for GI bleed. Admission Exam Per Admitting Provider GENERAL: Comfortable, pleasant, obese, no respiratory distress SKIN: Pallor, warm HEENT: Pale palpebral conjunctivae, no ptosis, dry buccal mucosa, dried dark liquid per [place] NECK : Supple, short neck, no tenderness CHEST : CTA, no tenderness HEART : RRR, no obvious murmurs ABDOMEN: Some distention, nontender EXTREMITIES : Minimal LE swelling, no LE tenderness, no other conspicuous deformities noted NEUROLOGIC : Coherent, no facial asymmetry, no other gross focality Principal Diagnosis Gastritis, upper GI bleed, in the setting of coagulopathy/elevated INR from Coumadin use Discharge Exam GENERAL: obese F in NAD HEENT: NC/AT, EOMI, PERRL NECK : Supple, short neck, no tenderness CHEST : CTA, no tenderness HEART : RRR, no obvious murmurs ABDOMEN: soft, + bowel sounds, no distention, nontender EXTREMITIES : Minimal LE swelling, no LE tenderness, moves extremities SKIN: warm, dry (pallor resolved) NEUROLOGIC : Coherent, no facial asymmetry, speech fluent, moves extremities Discharge Data Allergies Allergy/AdvReac Type Severity Reaction Status Date / Time No Known Allergies Allergy Verified 05/11/21 02:27 Consultations 05/11/21 03:53 Consult Gastroenterology Stat ED Decision to Admit Stat Procedures Performed Operation Date: 05/11/21 16:30 <No data on this case meets the specified criteria> Operation Date: 05/12/21 16:30 Actual Procedures p EGD Biopsy Cytology - Monica Connor MD Diabetes Follow up Diabetes Follow-up Needed for Newly Diagnosed Diabetes Hospital Course (1) UGIB (upper gastrointestinal bleed): Gastritis In the setting of Coumadin coagulopathy, history nonischemic/compaction cardiomyopathy status 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 pylori is negative Patient with hemodynamic instability. Vitamin K given on admission to reverse INR Hold Coumadin IV PPI Serial H&H, transfuse PRBC to obtain hemoglobin greater than 8 Pt now received 3 units of pRBC total as of 05/12 IVF stopped GI consult Re: GI bleed S/ P EGD (05/12/2021) Impression: - Normal esophagus. - Z-line regular. - Erythematous mucosa in the antrum. Biopsied. - Normal stomach. - Normal duodenal bulb and second portion of the duodenum. Recommendation: - Await pathology results. - H.pylori negative - Change PPI to IV BID. - Advance diet as tolerated. - She will be informed of biopsy results. Advanced diet to clear liquids, ordered Carafate in addition to PPI Continue to closely monitor Hgb 8.2 (05/13/21) Tolerating clear with diet, current hemoglobin 8.4, stable. advance to full liquid diet today. 05/15 -patient is tolerating low fiber diet, feeling well hemoglobin is stable. Restarted warfarin yesterday, INR at this point still subtherapeutic. She will need to follow-up with PCP and anticoagulation clinic. Plan to discharge on lower dose of warfarin, 3 mg daily. She will need to continue pantoprazole and Carafate. Chronic diastolic heart failure (EF 55%, TTE 2019), patient on the dry side on admission - on discharge hold furosemide and spironolactone, follow-up with PCP/cardiology Chronic left bundle branch block Hypertension, BP stable although on the lower side on admission Appropriate to hold antihypertensives for now until hemodynamics stable. 05/14 - BP much improved- restarted beta-domingo and lisinopril Hgb stable - restarted warfarin at lower dose - 3 mg daily Hyperlipidemia on statin Rx DM type 2, Hyperglycemia on admission - outpatient hemoglobin A1c of 6.18 August 2020 (patient unaware) Current hemoglobin A1c 7.1%, DM education - OneTouch Verio glucose meter provided/use reviewed. SMBG frequency/targets discussed. Cont. Basal insulin. ISS BG goal 110-140 Right breast cancer status post surgery/radiation on anastrozole, in remission DVT prophylaxis. SCDs Full code Patient's - Mr. Joshua Childs, contact #[phone]. Total Time Total Time Spent Total Time Spent (In Minutes): 40 Discharge Plan Discharge Items Patient Disposition: Home - Self-Care Reason For Visit: UGIB Discharge Diagnosis: Gastritis, upper GI bleed, in the setting of coagulopathy/elevated INR from Coumadin use Activity: Per Instructions section Non-emergency contact: Primary Care Provider Call non-emergency contact if: you have any medication questions and your symptoms worsen Follow-up/Referrals: Tarki Church MD [Primary Care Provider] - (Date & Time 05/20/2021 3:20 PM Provider Tarik Church MD Department [facility] ) Diet: Low Fiber and Low Fat Addtl Attending Provider Instructions: Follow-up with your primary care doctor, and anticoagulation clinic. The appointment with your primary care doctor was scheduled for you for May 20. Continue to take warfarin - however at a lower dose of 3 mg daily. You will need to have your INR checked in the next 2 days. Take pantoprazole twice a day as prescribed and also take Carafate as prescribed. For now continue with low fiber/low residue diet. Avoid any fatty, heavy or fried foods for now. Do not take furosemide or spironolactone until you talk to your primary care doctor. Pending Studies at Discharge: No Stand-Alone Forms: My [facility], Smoking Cessation Medications and DC Order Prescriptions: New warfarin 3 mg Tablet 3 mg PO DAILY@1600 Qty: 14 RF: 0 sucralfate 100 mg/mL Suspension 1 g PO QID@0800,1200,1800,2200 Qty: 200 RF: 0 pantoprazole 40 mg tablet,delayed release (DR/EC) 40 mg PO BID Qty: 60 RF: 0 Continued anastrozole 1 mg tablet 1 mg PO DAILY RF: 0 metoprolol succinate 100 mg tablet extended release 24 hr 100 mg PO DAILY RF: 0 simvastatin 20 mg tablet 20 mg PO HS RF: 0 digoxin 125 mcg (0.125 mg) tablet 0.125 mcg PO DAILY RF: 0 metoprolol succinate 25 mg tablet extended release 24 hr 25 mg PO DAILY RF: 0 lisinopril 2.5 mg tablet 2.5 mg PO DAILY RF: 0 solifenacin 5 mg tablet 5 mg PO DAILY RF: 0 Discontinued furosemide 20 mg tablet 20 mg PO DAILY RF: 0 spironolactone 25 mg tablet 25 mg PO DAILY RF: 0 warfarin 5 mg tablet See Rx Instructions .ROUTE .COMPLEX RF: 0 Discharge Orders: Discharge Order (Routine); Ordered 05/15/21 Ordered By: Alberto Craft Admission Data Admit Date/Time: 05/11/21 05:01 Attending Provider: Alberto Craft Admit Provider: Brain Hernandez Primary Care Provider: Tarik Church Other Providers: Brain Hernandez ; Tommy Sylvester Other Interventions: Discharge Summary Assessment (RN) Last Done: 05/12/21 09:44
[2021-05-15 11:18] VITALS: TEMP 98.1; O2SAT 97
[2021-05-15 12:41] VITALS: BP 121/79; PULSE 78
== END 2021-05-15 13:18 | disposition home or self-care (01) | DRG 813 ==
LOC: ED 01:58 → 2W 05:01 → SUATTDRO 05:01 → 2W 07:33